=== PATIENT | male | born 1990 | race African-American/Black ===

== ENCOUNTER 2017-05-28 06:53 | Inpatient (IN) | payer MEDICARE ==
[~2017-05-28] VITALS: Ht 167.6 cm; Wt 57.3 kg
[~2017-05-28 06:53] MED LIST: APAP325 MG PO; BACTROBAN NASAL1 GM NASAL; BACTROBAN NASAL1 GM NS; BUPRENORPHI0.3 MG/ML IV; COUMADIN10 MG PO; COUMADIN7.5 MG PO; DAKIN S TP; DAKIN'S 0.125%480 ML TP; EPOGEN4000 U/ML SQ; GENTAMICIN80 MG/2 ML IV; HYDROCODONE-APA1 TA3 PO; HYDROCODONE-APA1 TAB PO; LONITEN2.5 MG PO; METOPROLOL TAR100 MG PO; NIFEREX-150 F1 UDCAP PO; ONDANSETRON4 MG/2 M3 IM; ONDANSETRON4 MG/2 M3 IV; PERCOCET 10/3251 TA1 PO; RENAGEL800 MG PO; RESTORIL15 MG PO; ROCEPHIN 1 GM IN1 GM IV; SALINE FLUSH10 ML IV; SODIUM CL 0.91000 ML; SODIUM CL 0.91000 ML IV; TRIAMTERENE-HCT1 TA1 PO; TUMS500 MG PO; ULTRAM50 MG PO; VANCOMYCIN1 GM/2501 IV; VICODIN 5/500 T1 TAB PO; ZESTRIL40 MG PO; [UNRECOGNIZED DRUG - OTHER] TP
[2017-05-28 08:15] VITALS: BP 121/64; BMI 21.0
[2017-05-28 08:44] LABS: BASOPHILS 0.5 % (0-2); EOSINOPHILS 0.9 % (0-7); HEMATOCRIT 28.2 % (42.0-54.0); HEMOGLOBIN 9.4 g/dL (13.5-17.5); IMMATURE GRANULOCYTES 0.2 % (0-5); LYMPHOCYTES 13.1 % (15-50); MCH 31.8 pg (26.0-34.0); MCHC 33.3 g/dL (31.0-37.0); MCV 95.3 fL (80.0-100.0); MEAN PLATELET VOLUME 9.7 fL (7.4-10.4); MONOCYTES 8.8 % (2-11); NEUTROPHILS 76.5 % (40-80); RBC 2.96 10x6/uL (4.20-6.10); RDW 13.1 % (11.5-14.5); WBC 4.3 10x3/uL (4.8-10.8)
[2017-05-28 08:46] LABS: PLATELET COUNT 230 10x3/uL (130-400)
[2017-05-28 09:14] LABS: ANION GAP 15.3 mmol/L (8-16); CALCIUM 8.3 mg/dL (8.5-10.1); CARBON DIOXIDE 26.5 mmol/L (21.0-32.0); POTASSIUM - SERUM 3.8 mmol/L (3.5-5.1)
[2017-05-28 09:37] LABS: APTT 43.9 SECONDS (22.8-39.4); INR 1.81 (0.85-1.17)
[2017-05-28 15:31] VITALS: BP 115/56
[2017-05-28 15:36] VITALS: BP 115/56; BMI 21.0
--- NOTE | 2017-05-28 16:01 | NUR ---
ARRIVED FROM PACU. COOL AND DRY NO SHIVERING NOTED. VS STABLE BP IS 115/60. WOUND VAC ON. Maryan HERNANDEZ RN WOUND CARE ASSESSING VAC AND MAKING ADJUSTMENTS. HEMOSPLIT R CHEST. CAPS ON HEMOSPLIT TIGHTEN. IV INFUSING KVO IN L FA WITH 20 G. SCDS ON PAUL. FAMILY AT BEDSIDE. WILL CONTINUE TO MONITOR.
--- NOTE | 2017-05-28 17:33 | NUR ---
PT IN BED EATING DINNER. WOUND VAC TO RIGHT UPPER ARM. PT C/O PAIN 10/10 TO NECK AND ARM. WILL CONTINUE TO MONITOR
--- NOTE | 2017-05-28 17:52 | NUR ---
Patient Name: SYL COONEY Admission Status: Elective Accout number: [id number] Admission Date: 05-28-2017 : 1990 Admission Diagnosis: Attending: JONAH Current LOS: 1 Anticipated DC Date: Planned Disposition: Home with Home Health Primary Insurance: MEDICARE A & B PLANNED EXTERNAL PROVIDER: [facility] [place] [facility] / [facility] Discharge Planning Comments: * Is the patient Alert and Oriented? Yes 0 * How many steps to enter\exit or inside your home? 0 0 * PCP NONE 0 * Pharmacy [facility] 0 * Preadmission Environment Home with Family 0 * ADLs Independent 0 * Equipment None 0 * Other Equipment NO MEDICAL EQUIPMENT PROVIDER REFERENCE. PT'S GRANDMOTHER REQUESTS [facility] FOR HOME WOUND VAC 0 * List name and contact numbers for known caregivers / representatives who currently or will assist patient after discharge: GARCIA JONES, 0 * Community resources currently utilized Other 0 * Please name any agencies selected above. OUTPATIENT DIALYSIS, [facility], //, 0630AM, SCAT TRANSPORTATION 0 * Additional services required to return to the preadmission environment? Yes * Can the patient safely return to the preadmission environment? Yes 0 * Has this patient been hospitalized within the prior 30 days at any hospital? No 0 CM RECEIVED ORDER FOR HOME HEALTH ARRANGEMENT TO MANAGE WOUND VAC CHANGES. CM MET WITH PT AND GRANDMOTHER IN ROOM TO DISCUSS DISCHARGE NEEDS AND PLANNING. PT REPORTS LIVING WITH HIS MOTHER IN [facility] [place], HAS NO MEDICAL EQUIPMENT OR OUTSIDE SERVICES ASSISTING IN THE HOME. PT ATTENDS OUTPATIENT DIALYSIS IN [place] ON // 0630AM SCHEDULE, TAKES SCAT TRANSPORTATION TO AND FROM DIALYSIS. CM DISCUSSED AVAILABILITY OF HOME HEALTH, REHAB SERVICES AND MEDICAL EQUIPMENT. PT, AT SUGGESTION OF GRANDMOTHER, REQEUSTED [facility] FOR WOUND VAC FAMILY HAS USED THEM IN THE PAST AND FEELS THEY ARE A VERY GOOD COMPANY. PT HAS NO CHOICE FOR HOME HEALTH, CHOICE SIGNED BY PT FOR [facility] THEY ARE RATED AT 5 STARS. PT WILL NEED SCAT ARRANGED TO TRANSPORT HOME AT DISCHARGE. CM TO ARRANGE WOUND VAC WHEN ORDER RECEIVED ALONG WITH CLINICAL DOCUMENTATION FOR ORDER PROCESSING. CM CALLED [facility] IN [place], , SPOKE TO ONCOLOGY REP NURSE KEARA, DISCUSSED NEED OF WOUND VAC OVER NON WORKING DIALYSIS AVG. KEARA REPORTS THEY SHOULD BE ABLE TO ACCOMODATE VAC CHANGES OVER NON WORKING GRAFT THAT IS NOT BEING USED FOR DIALYSIS. CM TO FOLLOW UP WITH [facility], [place] OFFICE ON 05-31-17, TO ENSURE THIS CAN BE DONE AND WILL ALSO START PROCESS FOR HOME WOUND VAC WITH [facility]. Rubbish Collection Supervisor: Sha Palomino
[2017-05-28 19:00] VITALS: BP 104/70
--- NOTE | 2017-05-29 01:59 | NUR ---
FAMILY MEMBERS VISIT, TALK TO PT AT BED SIDE.
--- NOTE | 2017-05-29 03:30 | NUR ---
REST QUIETLY IN BED, EYE CLOSE, BED LOW, CALL LIGHT WITHIN REACH.
[2017-05-29 04:00] VITALS: BP 108/67
--- NOTE | 2017-05-29 07:00 | NUR ---
INITIAL ROUNDS MADE. PT SITTING UP IN BED WATCHING TV WITH FAMILY IN ROOM. PT DENIES NEEDS OR C/O AT THIS TIME. DISCUSSED PLAN OF CARE AND ISO PRECAUTIONS. RT ARM WOUND VAC INTACT. CONT TO MONITOR.
[2017-05-29 08:00] VITALS: BP 117/69
[2017-05-29 08:06] LABS: BASOPHILS 0.4 % (0-2); EOSINOPHILS 1.6 % (0-7); HEMATOCRIT 25.4 % (42.0-54.0); HEMOGLOBIN 8.6 g/dL (13.5-17.5); IMMATURE GRANULOCYTES 0.2 % (0-5); LYMPHOCYTES 14.4 % (15-50); MCH 31.9 pg (26.0-34.0); MCHC 33.9 g/dL (31.0-37.0); MCV 94.1 fL (80.0-100.0); MEAN PLATELET VOLUME 8.9 fL (7.4-10.4); MONOCYTES 7.7 % (2-11); NEUTROPHILS 75.7 % (40-80); PLATELET COUNT 265 10x3/uL (130-400); WBC 5.1 10x3/uL (4.8-10.8)
[2017-05-29 08:13] LABS: ANION GAP 14.2 mmol/L (8-16); CALCIUM 8.1 mg/dL (8.5-10.1); CARBON DIOXIDE 25.7 mmol/L (21.0-32.0); CREATININE - SERUM 10.2 mg/dL (0.6-1.3); POTASSIUM - SERUM 3.9 mmol/L (3.5-5.1)
--- NOTE | 2017-05-29 11:00 | NUR ---
HD NURSE AT BEDSIDE. VSS. CONT TO MONITOR.
[2017-05-29 12:00] VITALS: BP 150/78
[2017-05-29 13:25] VITALS: Ht 167.6 cm; Wt 57.3 kg
[2017-05-29 16:00] VITALS: BP 102/56
--- NOTE | 2017-05-29 17:30 | NUR ---
WATCHING TV. NO NEEDS OR C/O VOICED AT THIS TIME.
[2017-05-29 19:00] VITALS: BP 101/58
--- NOTE | 2017-05-29 22:47 | NUR ---
INITIAL ROUNDS COMPLETED AT 1914 HRS. PT STATED PAIN LEVEL WAS 5/10. INFORMED NEXT PAIN MED DUE AT 2114 HRS. PT STATED UNDERSTANDING. ASSESSMENT COMPLETED AT 1939 HRS. VSS. IV TO LFA SL. WOUND VAC TO UPPER R ARM INTACT WITH SCANT AMOUNTS OF SERO-SANGINOUS FLUID NOTED. LUNGS CTA. R CHEST HEMOSPLIT CLEAN, DRY AND INTACT. PM HTN MEDS HELD SBP 101. NORCO GIVEN. PT CURRENTLY RESTING WITH EYES CLOSED. RESP EVEN AND REGULAR. SR UP X2, CALL LIGHT WITHIN REACH AND FAMILY AT BEDSIDE.
[2017-05-30] VITALS: BP 109/63
--- NOTE | 2017-05-30 00:24 | NUR ---
PT AWAKE; STATES HAS PAIN 04/03. INFORMED NEXT DOSE AT 0100. PT STATES UNDERSTANDING. WILL CONTINUE TO MONITOR.
--- NOTE | 2017-05-30 01:56 | NUR ---
PT RESTING WITH EYES CLOSED. RESP EVEN AND REGULAR. SR UP X2,CALL LIGHT WITHIN REACH. FAMILY AT BEDSIDE.
[2017-05-30 04:00] VITALS: BP 107/61
--- NOTE | 2017-05-30 04:39 | NUR ---
PT STATES HAS INCISIONAL PAIN. 05/03. INFORMED WILL BRING NORCO AT 0500. WILL CONTINUE TO MONITOR.
--- NOTE | 2017-05-30 04:57 | NUR ---
NORPC PO GIVEN FOR C/O R ARM INCISIONAL PAIN. WILL CONTINUE TO MONTIOR.
--- NOTE | 2017-05-30 06:36 | NUR ---
VSS THROUGHOUT NIGHT. PT STATES NORCO HELPED HIS R ARM PAIN. NEEDS MET; WILL CONTINUE TO MONTIOR.
--- NOTE | 2017-05-30 07:00 | NUR ---
INITIAL ROUNDS MADE. PT SITTING UP IN BED WATCHING TV WITH FAMILY IN ROOM. NO NEEDS OR C/O VOICED AT THIS TIME. REQUESTING PAIN PILL WHEN DUE. WILL CONT TO MONITOR.
[2017-05-30 08:22] VITALS: BP 110/63
[2017-05-30 08:52] LABS: BASOPHILS 0.4 % (0-2); EOSINOPHILS 2.2 % (0-7); HEMATOCRIT 23.5 % (42.0-54.0); IMMATURE GRANULOCYTES 0.4 % (0-5); LYMPHOCYTES 22.4 % (15-50); MCH 31.9 pg (26.0-34.0); MCV 93.6 fL (80.0-100.0); MEAN PLATELET VOLUME 8.4 fL (7.4-10.4); MONOCYTES 10.4 % (2-11); NEUTROPHILS 64.2 % (40-80); PLATELET COUNT 269 10x3/uL (130-400); RBC 2.51 10x6/uL (4.20-6.10); RDW 13.2 % (11.5-14.5); WBC 4.9 10x3/uL (4.8-10.8)
[2017-05-30 09:07] LABS: ANION GAP 11.1 mmol/L (8-16); CALCIUM 7.9 mg/dL (8.5-10.1); CARBON DIOXIDE 31.2 mmol/L (21.0-32.0); CREATININE - SERUM 8.9 mg/dL (0.6-1.3)
[2017-05-30 09:09] LABS: POTASSIUM - SERUM 3.3 mmol/L (3.5-5.1)
[2017-05-30 12:10] VITALS: BP 110/55
--- NOTE | 2017-05-30 13:00 | NUR ---
NORCO GIVEN REQUESTED AND ORDERED PRN.
[2017-05-30 16:15] VITALS: BP 142/75
--- NOTE | 2017-05-30 19:44 | NUR ---
INITIAL ROUNDS COMPLETED. PT WATCHNG TV, NO DISTRESS NOTED. WILL CONTINUE TO MONITOR.
[2017-05-30 22:14] VITALS: BP 121/61
--- NOTE | 2017-05-30 22:44 | NUR ---
ASSESSMENT COMPLETED AT 5 HRS. VSS. IV TO LFA SL. LUGS CTA. UPPER R ARM SWOLLEN WITH WOUND VAC TO UPPER R ARM. WOUND VAC ATTACHED TO 0.25 DAKINS SOLUTION FOR IRRIGATION Q 4 HRS. SCANT SEROSANGINOUS FLUID NOTED. [place] R RADIAL PULSE. NORCO GIVEN AT 2100 FOR C/O R ARM PAIN. PM BP MEDS HELD BP 121/61. PT CURRENTLY WATCHING TV. NO DISTRESS NOTED. SR UP X2, CALL LIGHT WITHIN REACH.
--- NOTE | 2017-05-31 00:15 | NUR ---
PT AWAKE; NO DISTRESS NOTED. WILL CONTINUE TO MONITOR.
[2017-05-31 00:45] VITALS: BP 125/66
--- NOTE | 2017-05-31 02:13 | NUR ---
PT RESTING WITH EYES CLOSED. RESP EVEN AND REGULAR. SR UP X2, CALL LIGHT WITHIN REACH. FAMILY AT BEDSIDE.
[2017-05-31 04:00] VITALS: BP 123/69
--- NOTE | 2017-05-31 04:54 | NUR ---
PT RESTING WITH EYES CLOSED. RESP EVEN AND REGULAR. SR UP X2, CALL LIGHT WITHIN REACH.
--- NOTE | 2017-05-31 06:37 | NUR ---
VSS THROUGHOUT NGIHT. PT STATES NORCO HELPED CONTROL PAIN. LAB UNABLE TO DRAW LAB. STATES NEED TO DRAW IN DIALYSIS. NEEDS MET; WILL CONTINUE TO MONITOR.
--- NOTE | 2017-05-31 07:15 | NUR ---
REPORT RECIEVED ASSUMED CARE. PATIENT IN BED WITH IV INTACT. NO COMPLAINTS AT THIS TIME. CALL LIGHT WITHIN REACH.
[2017-05-31 08:00] VITALS: BP 105/65
--- NOTE | 2017-05-31 08:30 | NUR ---
ASSESSMENT COMPLETE, VS STABLE. PATIENT WOUND VAC INTACT BUT LEAKING SMALL AMOUNT OF DRAINAGE FROM THE BOTTOM OF THE DRESSING. NOTIFIED WOUND CARE NURSE. HEME SPLIT INTACT. IV INTACT. CALL LIGHT WITHIN REACH.
--- NOTE | 2017-05-31 10:00 | NUR ---
PATIENT IN BED WITH IV INTACT. NO COMPLAINTS AT THIS TIME. CALL LIGHT WITHIN REACH.
[2017-05-31 12:00] VITALS: BP 130/81
--- NOTE | 2017-05-31 12:25 | NUR ---
Wound care: Pt has wound vac to surgical wound on right upper arm. The incision measures 20cm x 3.5cm x 0.8cm. There are 2 areas with sutures: one is 1/[address] and the second is 3/[address], so incision appears as 3 separate incisions. The wound bed is red and beefy and bleeds easily. There is no odor or tenderness. There is a moderate amount of bloody drainage. No muscle, tendon or bone is exposed. The wound bed and surrounding skin was cleansed and skin prep applied surrounding wound. 3 pieces of black foam were placed in wound bed and secured. A pigtail was placed on top to connect all 3. Negative pressure was achieved at -125mmhg moderate continuous suction. Pt tolerated well.
--- NOTE | 2017-05-31 13:38 | NUR ---
NEW ORDERS FROM DR YOUSIF.
[2017-05-31 14:24] LABS: INR 1.7 (0.85-1.17); PROTIME 19.9 SECONDS (11.6-15.0)
[2017-05-31 14:25] LABS: APTT 50.2 SECONDS (22.8-39.4)
[2017-05-31 14:26] LABS: BASOPHILS 0.7 % (0-2); EOSINOPHILS 3.4 % (0-7); HEMATOCRIT 22.2 % (42.0-54.0); HEMOGLOBIN 7.5 g/dL (13.5-17.5); IMMATURE GRANULOCYTES 0.3 % (0-5); LYMPHOCYTES 20.6 % (15-50); MCH 31.6 pg (26.0-34.0); MCHC 33.8 g/dL (31.0-37.0); MCV 93.7 fL (80.0-100.0); MEAN PLATELET VOLUME 8.1 fL (7.4-10.4); MONOCYTES 8.8 % (2-11); NEUTROPHILS 66.2 % (40-80); PLATELET COUNT 260 10x3/uL (130-400); RBC 2.37 10x6/uL (4.20-6.10); RDW 13.3 % (11.5-14.5); WBC 5.9 10x3/uL (4.8-10.8)
--- NOTE | 2017-05-31 14:35 | NUR ---
Changed out wound vac dressing x2 more times d/t bleeding and clotting around vac sponges. Called Dr. Lindquist to update. New orders received and initiated (20mcg DDAVP IV NOW over 30 min., PT with INR, PTT NOW) Removed vac dressing and applied pressure dressing. Continuing to monitor.
[2017-05-31 14:45] LABS: ANION GAP 15.3 mmol/L (8-16); CALCIUM 7.7 mg/dL (8.5-10.1); CARBON DIOXIDE 27.5 mmol/L (21.0-32.0); CREATININE - SERUM 12.2 mg/dL (0.6-1.3); POTASSIUM - SERUM 3.8 mmol/L (3.5-5.1); VANCOMYCIN - RANDOM 29.8 ug/mL (10.0-20.0)
--- NOTE | 2017-05-31 14:54 | NUR ---
Patient Name: SYL COONEY Encounter No: [id number] : 1990 Primary Insurance: MEDICARE A & B Anticipated DC Date: Planned Disposition: Home with Home Health External Planned Provider: [facility] DCP follow-up note: CM RECEIVED WOUND NOTE DOCUMENTATION; CM CALLED [facility], , SPOKE TO RERE, NOTIFIED OF REFERRAL AND FAXED REFERRAL TO [facility] AT [phone]. CM CALLED [facility] IN [place], , PROVIDED REFERRAL TO KRISTINE WHO REPORTS THEY SHOULD BE ABLE TO PROVIDE WOUND VAC CHANGES; CM FAXED REFERRAL INFORMATION TO [facility] AT [phone]. CM NOTIFIED PT WHO IS IN AGREEMENT WITH DISCHARGE PLAN, IMPORTANT MESSAGE FROM MEDICARE PROVIDED AND EXPLAINED. PT PROVIDED NUMBER FOR [facility], . PT NORMALLY GETS HOME FROM HIS DIALYSIS AT ABOUT 1030 AM ON MWF. FOR COMPLETION OF HOME HEALTH WITH [facility], NOTIFY [facility] AT [phone], FAX DISCHARGE INFORMATION WITH WOUND VAC DRESSING CHANGE INSTRUCTIONS TO [phone]. CM WAITING PROCESSING OF WOUND VAC ORDER AND WILL REQUIRE SIGNATURE OF DR. YOUSIF ON PRESCRIPTION ONCE COMPLETED BY [facility]. Sha Palomino, CASE MANAGEMENT
--- NOTE | 2017-05-31 15:56 | NUR ---
PATIENT BLOOD STARTED BY DIALYSIS NURSE AT THIS TIME. VS STABLE. NO COMPLAINTS. CALL LIGHT WITHIN REACH.
[2017-05-31 16:00] VITALS: BP 152/82
--- NOTE | 2017-05-31 16:40 | NUR ---
SECOND UNIT OF BLOOD STARTED BY DIALYSIS NURSE. PATIENT VS STABLE. NO PROBLEMS AT THIS TIME. FAMILY AT BEDSIDE. CALL LIGHT WITHIN REACH.
--- NOTE | 2017-05-31 18:30 | NUR ---
PATIENT DRESSING REINFORCED AGAIN. LEAKING SMALL AMOUNT OF PINK DRAINAGE. PATIENT HAS NO COMPLAINTS AT THIS TIME. IV INTACT. CALL LIGHT WITHIN REACH. FAMILY AT BEDSIDE.
[2017-05-31 19:45] VITALS: BP 124/61
--- NOTE | 2017-05-31 20:00 | NUR ---
PATIENT IN BED WITH NO COMPLAINTS. IV INTACT. DRESSING INTACT. FAMILY AT BEDSIDE. CALL LIGHT WITHIN REACH.
--- NOTE | 2017-05-31 21:36 | OP ---
PATIENT NAME: SYL COONEY MEDICAL RECORD: [id number] :[birth year] LOCATION:D.M2 D.2112 ADMISSION DATE:05/28/17 SURGEON: GENEVIEVE YOUSIF MD DATE OF OPERATION: 05/28/2017 REFERRING PHYSICIAN: Dr. Dutta, Dr. Park and Dr. Landry. PREOPERATIVE DIAGNOSES: Abscess, right shoulder with infected underlying vascular graft and recent episodes of staphylococcal bacteremia and end-stage renal disease along with also superior vena cava syndrome. POSTOPERATIVE DIAGNOSES: Abscess, right shoulder with infected underlying vascular graft and recent episodes of staphylococcal bacteremia and end-stage renal disease along with also superior vena cava syndrome OPERATION PERFORMED: Removal of a HeRO outflow device and attached infected PTFE graft, performance of a superior vena cavogram and balloon angioplasty of superior vena cava stenosis and insertion of a HemoSplit tunneled dialysis catheter via right internal jugular venous approach. SURGEON: Genevieve Yousif MD ANESTHESIA: General endotracheal per OUTBOUND SALES EXECUTIVE. PREOPERATIVE NOTE: Mr. 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 He has most recently been dialyzing for some time now with a right upper extremity HeRO graft with origin from the proximal brachial artery. That graft had been revised one time and the graft routed posteriorly passing over a close to the point of the shoulder. Apparently, the point of the shoulder has been the site of the erosion of the connector into the overlying skin. He developed an abscess there, which has spontaneously drained. There is a pinhole there in the base of these ulcerations, which we can see the PTFE graft. He has had several episodes, I am told of staphylococcal bacteremia and has been on off and on antibiotics for some time. He is brought to the operating room at this time to plan to do an I&D drain in the abscess and most likely remove the HeRO graft and implant a HemoSplit. Initially, general anesthesia administered with LMA and subsequently intubated and continued as a general endotracheal anesthetic. The patient was prepped and draped in the sterile manner. I excised the skin erosions/abscess over the graft and exposed it and cultured the purulent thin non-foul smelling fluid around it for aerobic and anaerobic organisms and requested a stat Gram stain. The results of that are pending as I dictate. Obviously infected, I placed a clamp at that point across the HeRO outflow device. I then made an incision at the base of the neck and exposed the HeRO outflow device, clamped and divided it. I placed a 2-0 Vicryl pursestring suture at the base of the neck around the tract and noted that the catheter was encased in a calcified scar tract. I attempted to pass a dilator peel-away introducer sheath over a guidewire through that tract, but was unsuccessful due to stenosis so I placed an 8-Anguillan introducer pulling the pursestring suture tight about it and injected contrast performing exterior venacavogram and noted that the calcified tract extended all the way into the right atrium. This superior vena cava stenosis was subsequently dilated with an 8-mm diameter Conquest high pressure balloon and OPERATIVE REPORT [id number] SYL COONEY then I was able to pass dilators and a peel-away introducer sheath, then I inserted a 19-cm HemoSplit catheter brought in from a separate incision and a fresh subcutaneous tunnel. Its tip was positioned actually in the inferior vena cava. Both lumens were accessed and aspirated. Both return the blood and were then flushed with saline and then heparin lock, clamped and capped. The catheter was sutured to the skin near the entry site with 2-0 silk and appropriate sterile dressings applied. The cervical incision was irrigated with Ancef/gentamicin solution and the incision was closed with rick. Sterile dressing was applied. 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 I did not find any purulence. I closed the graft with 2 Hemoclips just above the antecubital level. I then extended the incision connecting all 3 and through that excised that long segment of PTFE into the connector and was able also to pull out the remaining portion of the HeRO outflow device. The wound was irrigated with Ancef/gentamicin solution that was infiltrated and irrigated with 0.25% Marcaine with epinephrine. The specimen was discarded with the exception of 2 short segments, one from the outflow device and one from the PTFE segment. These were sent separately for culture. The wound was partially closed at a couple of points to speed overall healing and then dressed with a wound VAC dressing with black foam. The patient was subsequently awakened and taken to the recovery room. Blood loss during the operation was insignificant and replaced and all sponges, instruments, and needles were accounted for. No drain was used other than the wound VAC dressing. He will need to stay in the hospital for pain control, wound management, wound VAC dressings, appropriate IV antibiotics and infectious disease consult. I believe he will need to stay on appropriate antibiotics for minimal of 6 weeks before we consider possibly implanting a new HeRO device and removing the new HemoSplit inserted today. Blood loss was about 50 cc and unreplaced. All sponges, instruments and needles were accounted for. TRANSINT:[id number] Voice Confirmation ID: [id number] DOCUMENT ID: [id number] GENEVIEVE YOUSIF MD at 2136 CC: KLAUDIA DUTTA MD and CARLEEN PARK MD [id number] DICTATION DATE: 05/28/17 1454 SUBSTANCE ADDICTION COORDINATOR: 05/28/17 191 ADM IN [facility] [address] [id number]
--- NOTE | 2017-05-31 22:10 | NUR ---
PATIENT RECIEVED PAIN MEDS. NO OTHER COMPLAINTS AT THIS TIME. IV INTACT. DRESSING INTACT. CALL LIGHT WITHIN REACH.
--- NOTE | 2017-05-31 23:00 | NUR ---
REPORT GIVEN TO DAGOBERTO LIN. PATIENT IN BED EYES CLOSED RESTING AT THIS TIME. IV INTACT. CALL LIGHT WITHIN REACH.
--- NOTE | 2017-06-01 01:11 | NUR ---
RESTING IN BED WITH EYES CLOSED. NO S/S OF DISTRESS OBSERVED. DRESSING TO RIGHT ARM HAS BLOOD ON IT. NURSE REPORTED PRESSURE DRESSING THAT SHE HAD REINFORCED. NO BLEEDING OBSERVED THIS SHIFT. SALINE LOCK TO LEFT HAND. PATENT AND NO REDNESS OR SWELLING TO SITE. FAMILY AT BED SIDE.
[2017-06-01 01:25] VITALS: BP 118/65
--- NOTE | 2017-06-01 04:01 | NUR ---
RESTING IN BED WITH EYES CLOSED. FAMILY AT BEDSIDE ASLEEP. NO S/S OF DISTRESS OBSERVED. HOB SLIGHTLY ELEVATED.
[2017-06-01 05:02] VITALS: BP 123/72
--- NOTE | 2017-06-01 05:15 | NUR ---
AWAKE AND ALERT. C/O LEFT ARM PAIN AT SURGICAL SITE AT 9. REQUESTING PAIN MEDICATION. MEDS GIVEN PER ORDERS. WILL REASSESS.
[2017-06-01 08:57] VITALS: BP 104/63
--- NOTE | 2017-06-01 10:02 | NUR ---
Wound care: Pressure dressing removed from surgical wound on right upper arm. Bleeding has stopped. Wound vac dressing applied. settings at -125mmhg moderate continuous. 1 piece of black foam used for entire area. Pt tolerated well.
--- NOTE | 2017-06-01 10:41 | NUR ---
0720- AM ROUNDING- RECEIVED REPORT FROM CLINICAL LABORATORY MANAGER NURSE DAGOBERTO. PT IS CURRENTLY LAYING IN BED ON RIGHT SIDE WITH EYES CLOSED RESTING. GUEST MEMBER AT BEDSIDE. ON ROOM AIR. NO MONITOR. IV SEEN TO LEFT FOREARM THAT IS CURRENTLY SALINE LOCKED. RIGHT CHEST HEMOSPLIT SEEN FOR DIALYSIS WITH CLEAN, DRY, AND INTACT DRESSING. DRESSING (WITH DRIED BLOOD) SEEN TO PTS RIGHT UPPER ARM THAT IS INTACT. NO NEED AT CURRENT TIME. WILL CONTINUE TO MONITOR AND CONTINUE WITH PLAN OF CARE.
--- NOTE | 2017-06-01 11:27 | NUR ---
Patient Name: SYL COONEY Encounter No: [id number] : 1990 Primary Insurance: MEDICARE A & B Anticipated DC Date: Planned Disposition: Home with Home Health External Planned Provider: [facility] DCP follow-up note: CM CALLED DR. YOUSIF'S OFFICE, SPOKE TO NURSE CROWE AND DISCUSSED NEED FOR SIGNED PRESCRIPTION FOR WOUND VAC AND FOR CM TO KNOW IF PLANS TO DISCHARGE PT HOME CM HAS ARRANGED MEDICAID TRANSPORTATION, , [facility] AT 1400 HOURS ON 06-01-17. NURSE CROWE REQUESTED CM PRINT VAC PRESCRIPTION AND FAX TO OFFICE; CM PRINTED VAC PRESCRIPTION AND FAXED TO [phone] REQUESTED. FOR COMPLETION OF HOME HEALTH WITH [facility], NOTIFY [facility] AT [phone], FAX DISCHARGE INFORMATION WITH WOUND VAC DRESSING CHANGE INSTRUCTIONS TO [phone]. CM WAITING SIGNATURE OF DR. YOUSIF ON PRESCRIPTION; ONCE RECEIVED, CM TO FAX TO [facility] AT [phone] TO COMPLETE PROCESSING OF ORDER. Sha Palomino, CASE MANAGEMENT
[2017-06-01 12:29] VITALS: BP 150/76
[2017-06-01 15:34] LABS: BASOPHILS 0.3 % (0-2); EOSINOPHILS 3.4 % (0-7); HEMATOCRIT 26.3 % (42.0-54.0); HEMOGLOBIN 8.9 g/dL (13.5-17.5); IMMATURE GRANULOCYTES 0.5 % (0-5); LYMPHOCYTES 21.4 % (15-50); MCH 30.3 pg (26.0-34.0); MCHC 33.8 g/dL (31.0-37.0); MEAN PLATELET VOLUME 8.3 fL (7.4-10.4); NEUTROPHILS 65.4 % (40-80); PLATELET COUNT 219 10x3/uL (130-400); RDW 16.8 % (11.5-14.5); WBC 6.2 10x3/uL (4.8-10.8)
[2017-06-01 15:35] LABS: MCV 89.5 fL (80.0-100.0); RBC 2.94 10x6/uL (4.20-6.10)
[2017-06-01 15:51] LABS: ANION GAP 16.6 mmol/L (8-16); CALCIUM 8.2 mg/dL (8.5-10.1); CARBON DIOXIDE 29.2 mmol/L (21.0-32.0); CREATININE - SERUM 10.9 mg/dL (0.6-1.3); POTASSIUM - SERUM 3.8 mmol/L (3.5-5.1); VANCOMYCIN - RANDOM 22.1 ug/mL (10.0-20.0)
[2017-06-01 15:59] VITALS: BP 128/76
--- NOTE | 2017-06-01 17:15 | NUR ---
PT IS CURRETNLY SITTING UP IN EATING DINNER. PT DENIES ANY NEED AT CURRENT TIME. CALL LIGHT IS IN REACH. WILL CONTINUE TO MONITOR.
[2017-06-01 19:00] VITALS: BP 153/73
--- NOTE | 2017-06-01 20:15 | NUR ---
C/O OF PAIN IN ARM, A LEVEL OF 8, PAIN MED GIVEN.
--- NOTE | 2017-06-01 22:52 | NUR ---
RESTING IN BED WITH NO DISTRESS. PRIMARY NURSE ADMINISTERING BEDTIME MEDS. CPOC.
--- NOTE | 2017-06-02 03:28 | NUR ---
REST IN BED, EYE CLOSE, CALL LIGHT WITHIN REACH.
[2017-06-02 05:44] LABS: BASOPHILS 0.4 % (0-2); HEMATOCRIT 25.3 % (42.0-54.0); HEMOGLOBIN 8.7 g/dL (13.5-17.5); IMMATURE GRANULOCYTES 0.7 % (0-5); LYMPHOCYTES 19.2 % (15-50); MCH 30.6 pg (26.0-34.0); MCHC 34.4 g/dL (31.0-37.0); MCV 89.1 fL (80.0-100.0); MEAN PLATELET VOLUME 8.2 fL (7.4-10.4); NEUTROPHILS 67.7 % (40-80); PLATELET COUNT 190 10x3/uL (130-400); RBC 2.84 10x6/uL (4.20-6.10); RDW 16.4 % (11.5-14.5); WBC 5.5 10x3/uL (4.8-10.8)
[2017-06-02 06:04] LABS: ANION GAP 15.8 mmol/L (8-16); CALCIUM 8.3 mg/dL (8.5-10.1); CARBON DIOXIDE 27.5 mmol/L (21.0-32.0); CREATININE - SERUM 12.4 mg/dL (0.6-1.3); POTASSIUM - SERUM 4.3 mmol/L (3.5-5.1); VANCOMYCIN - RANDOM 22.7 ug/mL (10.0-20.0)
--- NOTE | 2017-06-02 07:53 | NUR ---
AM ROUNDING- RECEIVED REPORT FROM PLANT HEALTH MANAGER NURSE LILIANA. PT IS CURRENTLY SITTING UP IN BED WITH EYES OPEN RESTING C/O 9/10 PAIN COMING FROM RIGHT UPPER ARM. ON ROOM AIR. NO MONITOR. IV SEEN TO LEFT FOREARM THAT IS CURRENTLY SALINE LOCKED. RIGHT CHEST HEMOSPLIT SEEN FOR DIALYSIS. RESERVE LEFT ARM. CLEAN, DRY, AND INTACT DRESSING SEEN TO RIGHT UPPER ARM THAT IS HOOKED UP TO WOUND VAC. WILL SEE WHAT PT HAS FOR PAIN AND TX PER ORDER. WILL CONTINUE TO MONITOR.
[2017-06-02 08:49] VITALS: BP 144/76
--- NOTE | 2017-06-02 11:47 | NUR ---
0830- SPOKE WITH PT REGARDING TAKING LUNA WITH BREAKFAST AND LUNCH ORDERED. PT STATES HE DID NOT LIKE THEM AND THAT THEY TASTED NASTY AND DID NOT WANT TO TAKE THEM.
[2017-06-02 16:09] VITALS: BP 126/60
--- NOTE | 2017-06-02 17:36 | NUR ---
Dialysis Coordinator: ALEXANDRA [facility] Dialysis Mon/Wed/Wed am shift. ANA CHAU.
--- NOTE | 2017-06-02 18:08 | NUR ---
PT IS CURRENTLY SITTING UP IN BED WITH EYES OPEN RESTING. PT IS ASKING WHEN HE CAN HAVE HIS PAIN MEDICATION AGAIN. I INFORMED PT I WILL CHECK AND SEE WHEN HE CAN HAVE PAIN MEDICAION. WILL CONTINUE TO MONITOR.
[2017-06-02 20:00] VITALS: BP 116/69
--- NOTE | 2017-06-02 20:12 | NUR ---
RESTING IN BED WITH EYES CLOSED AT THIS TIME. NO S/S OF DISTRESS OBSERVED.
--- NOTE | 2017-06-02 22:28 | NUR ---
RESTING IN BED WITH EYES CLOSED AT THIS TIME. SL TO LFA PATENT. DRESSING INTACT WITH NO REDNESS OR SWELLING OBSERVED. WOUND VAC TO RIGHT UPPER ARM. FUNCTIONING PROPERLY. DRESSING TO SITE INTACT. HEMOSPLIT TO RIGHT CHEST WITH DRESSING CLEAN, DRY A ND INTACT. C/O RIGHT ARM PAIN EARLIER AT 9 AND REQUESTED AMBIEN FOR SLEEP. MEDS GIVEN PER ORDERS.
--- NOTE | 2017-06-03 00:31 | NUR ---
FAMILY AT BEDSIDE AT THIS TIME. RESTING IN BED WITH EYES CLOSED AT THIS TIME. NO S/S OF DISTRESS OBSERVED. CALL LIGHT AND OVERBED TABLE IN REACH.
[2017-06-03 01:25] VITALS: BP 137/74
--- NOTE | 2017-06-03 02:19 | NUR ---
RESTING IN BED WITH EYES CLOSED. FAMILY ASLEEP AT BEDSIDE.
--- NOTE | 2017-06-03 04:07 | NUR ---
RESTING IN BED WITH EYES CLOSED AND FAMILY AT BEDSIDE ASLEEP. NO S/S OF DISTRESS OBSERVED. CALL LIGHT AND OVERBED TABLE IN REACH.
[2017-06-03 04:12] VITALS: BP 135/79
[2017-06-03 05:52] LABS: BASOPHILS 0.6 % (0-2); EOSINOPHILS 3.5 % (0-7); IMMATURE GRANULOCYTES 1.1 % (0-5); MCH 30.4 pg (26.0-34.0); MCHC 33.7 g/dL (31.0-37.0); MCV 90.4 fL (80.0-100.0); MEAN PLATELET VOLUME 8.3 fL (7.4-10.4); MONOCYTES 10.1 % (2-11); NEUTROPHILS 63.7 % (40-80); RDW 15.5 % (11.5-14.5); WBC 6.6 10x3/uL (4.8-10.8)
[2017-06-03 06:10] LABS: HEMATOCRIT 31.2 % (42.0-54.0); HEMOGLOBIN 10.5 g/dL (13.5-17.5); PLATELET COUNT 237 10x3/uL (130-400); RBC 3.45 10x6/uL (4.20-6.10)
[2017-06-03 06:17] LABS: ANION GAP 14.1 mmol/L (8-16); CALCIUM 8.8 mg/dL (8.5-10.1); CARBON DIOXIDE 31.2 mmol/L (21.0-32.0); CREATININE - SERUM 11.2 mg/dL (0.6-1.3); POTASSIUM - SERUM 4.3 mmol/L (3.5-5.1); VANCOMYCIN - RANDOM 17.7 ug/mL (10.0-20.0)
--- NOTE | 2017-06-03 07:39 | NUR ---
AM ROUNDING DONE WITH PATIENT HAVING WOUND VAC TO RIGHT UPPER ARM, NO LEAKS SEEN. MALE MEMBER ASLEEP IN CHAIR. LEFT HEMISPLIT SEEN WITH DRY INTACT DRESSING. LEFT FA SEEN WITH SALINE LOCK. RESERVE RIGHT ARM, DIALYSIS M, W, F. PATIENT IS UP AD LUCIUS. WILL CPOC.
[2017-06-03 09:19] VITALS: BP 184/88
--- NOTE | 2017-06-03 12:20 | NUR ---
Patient Name: SYL COONEY Encounter No: [id number] : 1990 Primary Insurance: MEDICARE A & B Anticipated DC Date: 06-03-2017 Planned Disposition: Home with Home Health External Planned Provider: [facility] DCP follow-up note: CM PAGED AND SPOKE TO RENAL NURSE ESTEPHANIA AND SPOKE TO DR. REDDY AT NURSES STATION; [facility] MEDICA[facility] TRANSPORTATION, , CALLED LAST EVENING BY CM, DG [facility] GROUP MANAGER SHEDULE FOR 06-03-17 AT 1400 HOURS FOR TRANSPORT HOME. CM RECEIVED DISCHARGE ORDERS, NOTIFIED PT WHO IS IN AGREEMENT WITH DISCHARGE HOME TODAY VIA [facility]. IMPORTANT MESSAGE FROM MEDICARE PROVIDED AND EXPLAINED. CM NOTIFIED MELI OF [facility] OF PT'S DISCHARGE HOME AND WILL RESUME HOME DIALYSIS UNIT TOMORROW. CM CALLED AND NOTIED [facility] AT [phone], HOME HEALTH TO ADMIT TOMORROW; CM FAXED DISCHARGE INFORMATION TO [phone]. Sha Palomino, CASE MANAGEMENT
--- NOTE | 2017-06-03 12:35 | NUR ---
USING STERILE TECHNIQUE, RIGHT HEMISPLIT DRESSING CHANGED USING THE PICC LINE KIT. DATED. TOLERATED WELL.
--- NOTE | 2017-06-03 13:00 | NUR ---
PATIENT TO LEAVE FLOOR WITH GRANDMOTHER. IV IS STILL IN.
--- NOTE | 2017-06-03 13:03 | NUR ---
PATIENT BACK TO ROOM WITH GRANDMOTHER. WRITTEN SCRIPT FOR NORCO 10/325 MG #30 WITH NO REFILLS WILL BE GIVEN TO PATIENT UPON DISCHARGE.
--- NOTE | 2017-06-03 13:10 | NUR ---
SALINE LOCK REMOVED WITH CATH TIP INTACT. VERBAL AND WRITTEN DISCHARGE PAPERWORK GIVEN TO PATIENT. DISCHARGED HOME PER WHEELCHAIR TO [facility].
[2017-06-04 17:11] LABS: AEROBE ID Final report (()); RESULT 1 Pantoea species (())
== END 2017-06-03 13:31 | disposition home health service (06) | DRG 252 ==
LOC: D.OPS 06:53 → D.M2 06:53 → D.OPS 09:30 → D.M2 14:44 → D.OPS 14:45 → D.M2 14:45
PROVIDERS: Emergency Medicine; Surgery; ADMIT Internal Medicine Nephrology
PROC: 06H033Z Insertion of Infusion Device into Inferior Vena Cava, Percutaneous Approach (ICD-10-PCS; 2017-05-28)
PROC: B5191ZA Fluoroscopy of Inferior Vena Cava using Low Osmolar Contrast, Guidance (ICD-10-PCS; 2017-05-28)
PROC: 0H9BXZZ Drainage of Right Upper Arm Skin, External Approach (ICD-10-PCS; 2017-05-28)
PROC: B5181ZZ Fluoroscopy of Superior Vena Cava using Low Osmolar Contrast (ICD-10-PCS; principal; 2017-05-28 10:30)
PROC: 027V3ZZ Dilation of Superior Vena Cava, Percutaneous Approach (ICD-10-PCS; 2017-05-28 10:30)
PROC: 03PY0KZ Removal of Nonautologous Tissue Substitute from Upper Artery, Open Approach (ICD-10-PCS; 2017-05-28 10:30)
PROC: 05HM33Z Insertion of Infusion Device into Right Internal Jugular Vein, Percutaneous Approach (ICD-10-PCS; 2017-05-28 10:30)
PROC: 5A1D60Z (ICD-10-PCS; 2017-05-29)
DX: T82.7XXA Infection and inflammatory reaction due to other cardiac and vascular devices, implants and grafts, initial encounter (principal); N18.6 End stage renal disease; I12.0 Hypertensive chronic kidney disease with stage 5 chronic kidney disease or end stage renal disease; I87.1 Compression of vein; L02.413 Cutaneous abscess of right upper limb; Y83.8 Other surgical procedures as the cause of abnormal reaction of the patient, or of later complication, without mention of misadventure at the time of the procedure; D63.1 Anemia in chronic kidney disease

== ENCOUNTER 2017-07-01 14:51 | Emergency (ER) | payer MEDICARE ==
[2017-05-29 13:25] VITALS: BMI 22.7
== END 2017-07-01 15:23 | disposition home or self-care (01) ==
LOC: D.ER 14:51
DX: K02.9 Dental caries, unspecified (principal); K08.89 Other specified disorders of teeth and supporting structures; I10 Essential (primary) hypertension

== ENCOUNTER 2017-07-27 07:23 | Inpatient (IN) | payer MEDICARE ==
[2017-07-27 08:23] LABS: BASOPHILS 0.5 % (0-2); EOSINOPHILS 5.3 % (0-7); HEMATOCRIT 33.3 % (42.0-54.0); HEMOGLOBIN 11.4 g/dL (13.5-17.5); IMMATURE GRANULOCYTES 0.5 % (0-5); MCH 32.2 pg (26.0-34.0); MCHC 34.2 g/dL (31.0-37.0); MCV 94.1 fL (80.0-100.0); MEAN PLATELET VOLUME 9.8 fL (7.4-10.4); NEUTROPHILS 53.7 % (40-80); RBC 3.54 10x6/uL (4.20-6.10); RDW 14.9 % (11.5-14.5); WBC 4.4 10x3/uL (4.8-10.8)
[2017-07-27 08:30] LABS: APTT 26.6 SECONDS (22.8-39.4)
[2017-07-27 08:31] LABS: ANION GAP 20.3 mmol/L (8-16); CALCIUM 8.6 mg/dL (8.5-10.1); CARBON DIOXIDE 20.9 mmol/L (21.0-32.0); CREATININE - SERUM 10.9 mg/dL (0.6-1.3); INR 1.05 (0.85-1.17); POTASSIUM - SERUM 4.2 mmol/L (3.5-5.1); PROTIME 13.5 SECONDS (11.6-15.0)
[2017-07-27 08:44] LABS: PLATELET COUNT 152 10x3/uL (130-400)
[2017-07-27 09:51] VITALS: BMI 21.0
--- NOTE | 2017-07-27 15:05 | NUR ---
2ND PREP FOR INSERTION OF CVL PER INTO LEFT GROIN. 3RD PREP: PAUL UPPER CHEST TO WAIST, LEFT HAND AND ARM
[2017-07-27 17:40] VITALS: BP 148/88
--- NOTE | 2017-07-27 17:41 | NUR ---
PT TO ROOM ALERT AND ORIENTED. POST OP VS ARE WNL WILL ADMIT
[2017-07-27 17:42] VITALS: BP 148/88; BMI 21.0
--- NOTE | 2017-07-27 18:44 | NUR ---
PT VS ARE STILL WNL. PT SITTING UP IN BED SLEEPING NO S/S DISTRESS NOTED RR EVEN AND UNLABORED
[2017-07-27 19:00] VITALS: BP 148/98
--- NOTE | 2017-07-27 19:40 | NUR ---
PT RESTING IN BED. STATES PAIN IS 8/10 IN LEFT ARM. PT HAS BULGING EYES. STATES THAT HIS EYES ARE JUST LIKE THAT. PT ASKS FOR APPLE JUICE, DENIES ANY NEEDS OTHER THAN THAT. PT BED LOW AND CALL LIGHT IN REACH. WILL CPOC
--- NOTE | 2017-07-27 19:45 | NUR ---
GAVE PT APPLE JUICE. PT DENIES ANY OTHER NEEDS. WILL CPOC
--- NOTE | 2017-07-27 19:50 | NUR ---
PT ATE 10% 240ML OF DINNER.
--- NOTE | 2017-07-27 23:25 | NUR ---
PT ASLEEP. RESPIRATIONS EVEN AND UNLABORED. POST OP VITALS DONE AND IN CHART. LAST SET AT 2300 146/95 PULSE 89 RESPIRATIONS 16 TEMP. 98.6. PT HAS NO S/S OF DISTRESS. BED LOW AND CALL LIGHT IN REACH. WILL CPOC
--- NOTE | 2017-07-28 | NUR ---
PT A RESERVE LEFT ARM SIGN ON PT DOOR AND ABOVE BED. PT ASLEEP. RESPIRATIONS EVEN AND UNLABORED. 16. NO S/S OF DISTRESS. WILL CPOC
--- NOTE | 2017-07-28 01:25 | NUR ---
PT C/O PAIN 9/10 IN LEFT ARM THAT IS THROBBING. PRN PAIN MED GIVEN. PT DENIES ANY OTHER NEEDS. NO S/S OF DISTRESS. WILL CPOC
[2017-07-28 04:00] VITALS: BP 165/98
--- NOTE | 2017-07-28 05:01 | NUR ---
PT RESTING IN BED. C/O PAIN IN LEFT ARM. TRAMADOL GIVEN. PT DECLINES AN ICE PACK. PT EXPRESSING PAIN AND SOME MILD ANXIETY. PT HAS NO S/S OF DISTRESS. WILL CPOC
--- NOTE | 2017-07-28 05:42 | NUR ---
PT ASLEEP. RESPIRATIONS EVEN AND UNLABORED BP 140/89 PULSE 96. NO S/S OF DISTRESS. BED LOW AND CALL LIGHT IN REACH. WILL CPOC
--- NOTE | 2017-07-28 07:19 | NUR ---
pt sitting up in bed sleeping no s/s distress noted rr even and unlabored. will cont to monitor
[2017-07-28 08:16] VITALS: BP 141/88
--- NOTE | 2017-07-28 09:00 | NUR ---
CHANGED PT LEFT GROIN CVL DSNG PER FLOOR POLICY STERILE TECHNIQUE INITIATED. BIOPATCH AND SWAB CAPS INTACT
--- NOTE | 2017-07-28 09:53 | NUR ---
THERE WAS AN ORDER TO COLLECT CULTURE OF HEMOSPLIT CATHETER TIP. PT HAD HEMOSPLIT REMOVED YESTERDAY, NO HEMOSPLIT TO CULTURE.
[2017-07-28 10:40] VITALS: BMI 20.9
[2017-07-28 11:45] VITALS: BP 146/56
[2017-07-28 12:17] LABS: HEMATOCRIT 27.4 % (42.0-54.0); HEMOGLOBIN 9.6 g/dL (13.5-17.5); MCH 32.4 pg (26.0-34.0); MCV 92.6 fL (80.0-100.0); MEAN PLATELET VOLUME 8.9 fL (7.4-10.4); PLATELET COUNT 124 10x3/uL (130-400); RBC 2.96 10x6/uL (4.20-6.10)
[2017-07-28 12:25] LABS: ANION GAP 17.3 mmol/L (8-16); CALCIUM 8.2 mg/dL (8.5-10.1); CARBON DIOXIDE 21.7 mmol/L (21.0-32.0); CREATININE - SERUM 11.6 mg/dL (0.6-1.3)
[2017-07-28 12:36] LABS: WBC 2.7 10x3/uL (4.8-10.8)
[2017-07-28 13:50] LABS: EOSINOPHILS 3 % (0-7); LYMPHOCYTES 15 % (15-50); MONOCYTES 1 % (2-11); NEUTROPHILS 81 % (40-80)
--- NOTE | 2017-07-28 13:50 | NUR ---
[facility] IS JUST NOW GENERATING ORDERS FROM DAYS AGO... I AWKNOLGED AN ORDER FROM YESTERDAY FOR 2 UNITS PRBC. TALKED WITH ESTEPHANIA SOLIS FROM [facility] ABOUT THIS, SHE SAID TO ORDER STAT CBC AND IF HGB IS ABOVE 8 DO NOT TRANSFUSE AND CANCEL PRBC ORDER. WILL DO
[2017-07-28 13:51] LABS: PLATELET ESTIMATE NORMAL
--- NOTE | 2017-07-28 14:29 | NUR ---
TALKED WITH ESTEPHANIA VALLEJO APN ABOUT PT HAVING DUPLICATE ORDERS FOR TYLENOL AND ULTRAM. SHE IS GOING TO LOOK AT MED REC AND DC THE DUPLICATES.
--- NOTE | 2017-07-28 14:34 | NUR ---
Mr. Austin had hemodialysis today via his left lower arm av fistula from 102 till 1521. Average blood flow was 300-350 mls/minute. Transfused two units of prbc's. Removed the 700 mls from the two units of prbc's and a net of 2000 mls. Post vital signs were: B/P: 185/70, HR:71, Temp: 98.5, Resps: 16. Pt. had some significant cramping at the end of treatment.
--- NOTE | 2017-07-28 15:06 | NUR ---
PT IS STILL IN DIALYSIS
--- NOTE | 2017-07-28 15:50 | NUR ---
PHARMACY JUST BROUGHT UP PT MINOCIN. TOO CLOSE TO NEXT DOSE TO GIVE NOW. WILL PASS OFF TO RICE DRYER MECHANIC TO GIVE AT 2100
--- NOTE | 2017-07-28 15:50 | NUR ---
PT IS STILL IN DIALYSIS.
--- NOTE | 2017-07-28 16:01 | NUR ---
Mr. Cross had hemodialysis had hemodialysis today via his new left upper arm hero graft. Used acuseal protocol, 17 gauge needles, sterile gloves and 250 blood flow. Net fluid removed was 3500 mls. Post vital signs were: B/P: 153/90, HR: 98, Temp: 98.8, Resps:16.
--- NOTE | 2017-07-28 16:35 | NUR ---
STILL WAITING ON LAB TO RESULT OF PT INR BEFORE I GIVE HIM HIS COUMADIN
--- NOTE | 2017-07-28 16:42 | NUR ---
STILL WAITING ON PT INR........... PT RECEIVED [facility]
[2017-07-28 16:57] LABS: INR 1.06 (0.85-1.17); PROTIME 13.6 SECONDS (11.6-15.0)
--- NOTE | 2017-07-28 19:30 | NUR ---
PT RESTING IN BED. PT C/O 06/03 PAIN IN LEFT ARM THAT IS THROBBING. WILL BRING PAIN MEDS SOON CHECK TIMES THAT MEDS ARE AVALIBLE. PT DENIES ANY OTHER NEEDS. NO S/S OF DISTRESS. WILL CPOC
[2017-07-28 20:00] VITALS: BP 112/68
--- NOTE | 2017-07-28 20:30 | NUR ---
GAVE PT PAIN MEDS FOR 8/10 PAIN. PT DENIES ANY OTHER NEEDS. WILL CPOC
--- NOTE | 2017-07-28 23:44 | NUR ---
PT C/O 05/03 PAIN IN LEFT ARM. SCHEDULED ULTRAM GIVEN PRN NORCO GIVEN. PT DENIES ANY OTHER NEEDS. NO S/S OF DISTRESS. WILL CPOC
[2017-07-29 04:00] VITALS: BP 140/87
--- NOTE | 2017-07-29 04:02 | NUR ---
PT C/O 06/03 PAIN IN LEFT ARM. PAIN MED GIVEN. PT ASK FOR A NIGHT SNACK. WILL GIVE GRAMCRACKERS AND PNT BUTTER. PT DENIES ANY OTHER NEEDS. NO S/S OF DISTRESS. WILL CPOC
[2017-07-29 05:51] LABS: BASOPHILS 0.2 % (0-2); EOSINOPHILS 6.4 % (0-7); HEMATOCRIT 29.8 % (42.0-54.0); HEMOGLOBIN 10.4 g/dL (13.5-17.5); IMMATURE GRANULOCYTES 0.2 % (0-5); LYMPHOCYTES 15.8 % (15-50); MCH 32.3 pg (26.0-34.0); MCHC 34.9 g/dL (31.0-37.0); MCV 92.5 fL (80.0-100.0); MONOCYTES 17.2 % (2-11); NEUTROPHILS 60.2 % (40-80); PLATELET COUNT 136 10x3/uL (130-400); RBC 3.22 10x6/uL (4.20-6.10); RDW 14.8 % (11.5-14.5)
[2017-07-29 06:08] LABS: WBC 4.4 10x3/uL (4.8-10.8)
[2017-07-29 06:11] LABS: ANION GAP 15.6 mmol/L (8-16); CALCIUM 8.4 mg/dL (8.5-10.1); CARBON DIOXIDE 27.1 mmol/L (21.0-32.0); CREATININE - SERUM 10.1 mg/dL (0.6-1.3); POTASSIUM - SERUM 3.7 mmol/L (3.5-5.1)
--- NOTE | 2017-07-29 06:36 | NUR ---
PT ASLEEP. RESPIRATIONS EVEN AND UNLABORED. NO S/S OF DISTRESS. CALL LIGHT IN REACH. WILL CPOC
--- NOTE | 2017-07-29 07:41 | NUR ---
PT SITTING UP IN BED REQUESTING PAIN MEDICATION. CAN HAVE MORE MEDICATION AT 0800. WILL GIVE THEN.
[2017-07-29 08:00] VITALS: BP 141/74
[2017-07-29 12:00] VITALS: BP 126/77
[2017-07-29 15:44] LABS: INR 1.23 (0.85-1.17); PROTIME 15.4 SECONDS (11.6-15.0)
--- NOTE | 2017-07-29 15:54 | NUR ---
STILL WAITING ON PT INR TO COME BACK FROM LAB WILL GIVE COUMADIN WHEN BACK
[2017-07-29 16:00] VITALS: BP 156/98
--- NOTE | 2017-07-29 16:01 | NUR ---
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 Yes 0 * How many steps to enter\exit or inside your home? NONE 0 * PCP NONE DR. BRYANT, VP ORGANIZATIONAL DEVELOPMENT 0 * Pharmacy [facility] 0 * Preadmission Environment Home with Family 0 * ADLs Independent 0 * Equipment None 0 * Other Equipment NO MEDICAL EQUIPMENT PROVIDER 0 * List name and contact numbers for known caregivers / representatives who currently or will assist patient after discharge: GARCIA JONES, GRANDMOTHER, 0 * Community resources currently utilized Other 0 * Please name any agencies selected above. OUTPATIENT DIALYSIS, [facility], M/W/F, 0630AM, [facility] TRANSP[facility]ATION 0 * Additional services required to return to the preadmission environment? Yes * Can the patient safely return to the preadmission environment? Yes 0 * Has this patient been hospitalized within the prior 30 days at any hospital? No 0 CM MET WITH PT IN ROOM TO DISCUSS DISCHARGE PLANNING AND NEEDS. PT REPORTS LIVING AT HOME INDEPENDENTLY WITH HIS MOTHER. PT HAS NO MEDICAL EQUIPMENT AND NO OUTSIDE SERVICES ASSISTING IN THE HOME. PT ATTENDS OUTPATIENT DIALYSIS ON MWF SCHEDULE, 0630AM, AND USES [employer] TRANSPORTATION. CM RECEIVED HOME HEALTH ORDER, DISCUSSED AVAILABILITY OF HOME HEALTH, REHAB SERVICES AND MEDICAL EQUIPMENT. PT REPORTS WANTING TO USE [facility] AGAIN; CHOICE SIGNED. PT REPORTS HE NEEDS [facility] TRANSPORT TO PICK HER UP FOR DISCHARGE HOME. IMPORTANT MESSAGE FROM MEDICARE PROVIDED AND EXPLAINED. CM CALLED MEDICAID TRANSPORTATION SERVICES, , SPOKE TO MARILYNN AND SCHEDULED [facility]AT MARINE PROPULSION TECHNICIAN AT 2PM FOR TOMORROW, PROVIDED NURSES STATION PHONE NUMBER FOR SUPPLY CHAIN TECHNICIAN TO CALL WHEN THEY ARRIVE. CONFIRMATION # [id number]. PT NOTIFIED OF MARINE PROPULSION TECHNICIAN TIME. CM CALLED [facility], [employer] OFFICE, , SPOKE TO KRISTINE WHO REPORTED THEY WILL ACCEPT PT AND ADVISED CM THAT PT WAS NON COMPLIANT WITH HOME HEALTH LAST TIME AND WAS NOT ABLE TO BE LOCATED TO CHANGE HIS WOUND VAC FOR OVER ONE WEEK. PT WAS NOT HOME FOR MANY VISITS BY HOME HEALTH. CM FAXED REFERRAL TO [facility] AT [phone]. CM NOTIFIED PT AND NOTIFIED PT THAT HE NEEDS TO SCHEDULE [facility] TRANSPORT WELL BEFORE 48 HOURS FOR HIS FOLLOW UP APPOINTMENT WITH DR. YOUSIF. PT REPORTED UNDERSTANDING. CM DISCUSSED COMPLIANCE WITH HOME HEALTH AND THAT HOME HEALTH WILL TRY AGAIN, BUT IF PT IS NOT HOME FOR APPOINTMENTS, HOME HEALTH WILL CANCEL SERVICES AND MAY NOT ACCEPT HIM AGAIN, FORCING PT TO FIND CARE AN OUTPATIENT. PT REPORTED UNDERSTANDING. CM ASKED PT IF HE UNDERSTANDS THAT HE IS RISKING INFECTIONS, LOSS OF LIMBS AND POSSIBLY LOSS OF LIFE WITH NOT BEING AVAILABLE FOR HOME HEALTH TO PROPERLY CARE FOR WOUNDS. PT REPORTS UNDERSTANDING. FOR DISCHARGE, NOTIFY [facility] AT [phone]; FAX DISCHARGE TO [facility] AT [phone]. MEDICAID VAN TO MARINE PROPULSION TECHNICIAN PT AT 2PM TOMORROW, 07-30-17. Features Editor: Sha Palomino
--- NOTE | 2017-07-29 18:29 | NUR ---
PT SITTING UP IN BED SLEEPING NO S/S DISTRESS NOTED RR EVEN AND UNLABORED
--- NOTE | 2017-07-29 19:14 | NUR ---
PT ASLEEP. NAME AND DATE WRITTEN ON BOARD. PT RESPIRATIONS ARE EVEN AND UNLABORED. 16. PT HAS NO S/S OF DISTRESS. BED LOW AND CALL LIGHT IN REACH. WILL CPOC
--- NOTE | 2017-07-30 01:02 | NUR ---
PT C/O LEFT ARM PAIN AND STERNUM PAIN THAT IS IN CENTER OF UPPER CHEST. STATES IT IS THROBBING. BUPREMEX GIVEN PRN PAIN. ULTRAM GIVEN A SCHEDULED. PT SITTING UP EATING GRAMCRACKERS. EKG DONE. IN CHART. PT DENIES ANY OTHER NEEDS. NO S/S OF DISTRESS. WILL CPOC
[2017-07-30 04:00] VITALS: BP 134/83
[2017-07-30 05:41] LABS: BASOPHILS 0.3 % (0-2); EOSINOPHILS 6.4 % (0-7); HEMATOCRIT 29.7 % (42.0-54.0); HEMOGLOBIN 10.4 g/dL (13.5-17.5); IMMATURE GRANULOCYTES 0.3 % (0-5); LYMPHOCYTES 18.6 % (15-50); MCV 91.4 fL (80.0-100.0); MEAN PLATELET VOLUME 9.2 fL (7.4-10.4); NEUTROPHILS 58.4 % (40-80); PLATELET COUNT 135 10x3/uL (130-400); RBC 3.25 10x6/uL (4.20-6.10); RDW 14.6 % (11.5-14.5); WBC 3.9 10x3/uL (4.8-10.8)
[2017-07-30 06:09] LABS: ANION GAP 19.1 mmol/L (8-16); CALCIUM 8.2 mg/dL (8.5-10.1); CARBON DIOXIDE 24.6 mmol/L (21.0-32.0); POTASSIUM - SERUM 3.7 mmol/L (3.5-5.1)
[2017-07-30 06:19] LABS: INR 2.83 (0.85-1.17)
[2017-07-30 06:22] LABS: CREATININE - SERUM 12.8 mg/dL (0.6-1.3)
--- NOTE | 2017-07-30 06:27 | NUR ---
PT RESTING IN BED. STATES THAT CHEST PAIN IS BETTER BUT STILL HURTS IN LEFT ARM. TOLD PT HIS ULTRAM IS SCHEDULED FOR 0800 AND THAT SHOULD HELP RELIEVE HIS PAIN. PT HAS NO S/S OF DISTRESS. WILL CPOC
--- NOTE | 2017-07-30 07:20 | NUR ---
REPORT RECIVED. RR EVEN AND UNLABORED, PT REQUESTING PAIN PILL. WILL GIVE WITH MORNING MEDS. SPOKE TO DIALYSIS REGARDING BP MEDS THIS MORNING. [facility] NURSE TOLD ME TO HOLD BP MEDS PRIOR TO DIALYSIS. WILL CTM.
[2017-07-30 08:00] VITALS: BP 139/86
--- NOTE | 2017-07-30 09:15 | NUR ---
PT TRANSPORTED TO DIALYSIS BY BED X2 ASSIST.
[2017-07-30] MEDS ORDERED: PLAVIX75 MG PO (12:01)
[2017-07-30] MEDS ORDERED: MINOCIN50 MG PO (12:03)
--- NOTE | 2017-07-30 13:53 | NUR ---
PT D/C. DISCHARGE INSTRUCTIONS PROVIDED. PT VERBALIZED UNDERSTANDING AND DENIES FUTHER QUESTIONS. PAPERWORK SIGNED. CVL DRESSING REMOVED WITH CATHETER TIP INTACT. DIRECT PRESSURE HELD FOR 5 MINUTES. PT INSTRUCTED TO LAY FLAT FOR AT LEAST 10 MINUTES. VERBALIZED UNDERSTANDING. DENIES FURTHER NEEDS WILL CALL WHEN READY TO GO. WILL BE GOING HOME VIA BUS. WILL CTM UNTIL D/C.
--- NOTE | 2017-07-30 15:10 | NUR ---
Patient Name: SYL COONEY Encounter No: [id number] : 1990 Primary Insurance: MEDICARE A & B Anticipated DC Date: 07-30-2017 Planned Disposition: Home Health Service External Planned Provider: [facility] DCP follow-up note: CM RECEIVED DISCHARGE ORDERS, SPOKE TO PT IN ROOM AFTER DIALYSIS WHO IS IN AGREEMENT WITH DISCHARGE HOME WITH HOME HEALTH TODAY. SCAT TO ORANGE PICKER MACHINE OPERATOR AT 2PM OR AFTER TODAY. CM NOTIFIED MEREDITH AT [employer] AT [phone]; FAX EDDISCHARGE TO [facility] AT [phone]. Data Management Engineer: Sha Palomino
--- NOTE | 2017-09-07 13:00 | OP ---
PATIENT NAME: SYL COONEY MEDICAL RECORD: [id number] :[birth year] LOCATION:D. D.2134 ADMISSION DATE:07/27/17 SURGEON: GENEVIEVE YOUSIF MD DATE OF OPERATION: 07/27/2017 REFERRING PHYSICIAN: Dr. Bryant of [facility]. SURGEON: Genevieve Yousif MD ANESTHESIA: General endotracheal per WELL SURVEYING ENGINEER. 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 OPERATION PERFORMED: Ultrasound-guided access and venogram via the left internal jugular vein, demonstrating extensive occlusive changes and then removal of right internal jugular tunneled dialysis catheter. Performance of a superior vena cavogram and balloon angioplasty of the left internal jugular brachiocephalic vein and superior vena cava, and then insertion of a HeRO outflow device into the right atrium via the right internal jugular vein. Then, implantation of a PTFE AV graft in the left arm from the brachial artery to the deltopectoral groove where it was connected to the new HeRO outflow device, which then passed medially across the midline to dive down into the right internal jugular to the right atrium. Also, because of poor venous access, I used ultrasound guidance and placed a non-tunneled central venous line via the left femoral vein. SURGEON: Genevieve Yousif MD GENERAL: General endotracheal. PREOPERATIVE NOTE: Mr. Cooney is an unfortunate young man only 26 years of age whose life has been difficulty. 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 At any rate, he is dependent on hemodialysis at this time and has extensive central vein stenoses and has exhausted many avenues for dialysis access. He most recently had a HeRO graft on the right and had to be removed because of staphylococcal infection. He is presently dialyzing with a right internal jugular tunneled dialysis catheter. He is brought to the operating room to try to implant a HeRO on the left side. With the patient under general endotracheal anesthesia, he was prepped and draped in a sterile manner. The left femoral vein was visualized with ultrasound, and using standard Seldinger technique an Arrow triple lumen central venous catheter was inserted and advanced up towards the vena cava without difficulty. It was sutured in place. All 3 lumens were accessed and aspirated, free return of blood confirmed. They were then flushed with saline and then heparin lock solution, clamped and capped. This IV was available then to the venue coordinator for IV access during rest of the operation. OPERATIVE REPORT [id number] IVETSYL I then accessed the left internal jugular vein or tributary of it with ultrasound guidance and micropuncture technique. Contrast injection demonstrated occlusion of the internal and external jugular veins and filling of the right-sided neck veins via collaterals with no direct flow into the superior vena cava from the left side. I then made an incision on the right and exposed his tunneled dialysis catheter, which I removed over a guidewire. I removed the subcutaneous and external segments and sent the cuffed subcutaneous segment for culture. The intravascular segment was removed over the guidewire and an introducer sheath inserted. Contrast injection was then made, which revealed a rigid calcified sheath all the way from skin entry site to the right atrium. I subsequently dilated this tract with an 8 mm angioplasty balloon and then was able to insert a HeRO outflow device and positioned its tip well down into the right atrium and confirmed its position as appropriate by another contrast injection. The HeRO device was then flushed with heparinized saline and clamped. An incision was made in the left deltopectoral groove and carried down to the pectoral fascia and the HeRO device was then pulled through a subcutaneous tunnel across the midline and over to the right deltopectoral groove. I then chose a 4 mm to 6 mm tapered Acuseal PTFE graft. I used the tapered graft because of the patient's history of steal on the right side. An incision was made to expose the brachial artery and it was controlled with Silastic loops. It was opened and flushed with heparinized saline proximally and distally and treated with topical papaverine. The taper graft was shortened and beveled and anastomosed end-to-side to the artery with running 6-0 Prolene. The suture line was hemostasis when flow was restored. The graft was flushed with heparinized saline and then pulled through long subcutaneous tunnel up to the deltopectoral groove where a HeRO connector was used to connect the Acuseal to the HeRO outflow device. At that point, all clamps and loops were released, excellent flow was immediately established in the new AV graft. The PTFE connector segment was fixed to the adjacent pectoral fascia with a 2-0 Prolene suture. The wounds were then all irrigated with Ancef and gentamicin solution, and closed with interrupted inverted 3-0 Vicryl and running intracuticular 4-0 Monocryl and Dermabond glue. Dressings of Maxorb Ag, Tegaderm and Cavilon skin prep were applied and the patient was awakened and extubated, and taken to the recovery room. Chest x-ray will be obtained in the recovery room, documented again the positioning of the HeRO device. The patient will need to have dialysis probably tomorrow here in the hospital. When he does go home, he will need to have Acuseal protocol followed for 2 weeks and a return appointment scheduled to see me in my office in about 2 weeks. Blood loss during the procedure was about 50 cc, none was replaced intraoperatively. No drain was used. No surgical specimen was submitted for histopathology. The subcutaneous cuff segment of catheter was sent for culture. TRANSINT:[id number] Voice Confirmation ID: [id number] DOCUMENT ID: [id number] GENEVIEVE YOUSIF MD at 1300 CC: GUIDO BRYANT III MD [id number] DICTATION DATE: 08/29/17 1443 ORTHOPEDIC BRACE MAKER: 08/29/17 1534 DIS IN 07/30/17 [address] [place] [address]
== END 2017-07-30 13:59 | disposition home health service (06) | DRG 252 ==
LOC: D.OPS 07:23 → D.M2 17:28 → D.OPS 17:29 → D.M2 17:30
PROVIDERS: Internal Medicine Nephrology; Surgery; ADMIT Internal Medicine Nephrology
PROC: 03180JV Bypass Left Brachial Artery to Superior Vena Cava with Synthetic Substitute, Open Approach (ICD-10-PCS; 2017-07-27)
PROC: 03180KD Bypass Left Brachial Artery to Upper Arm Vein with Nonautologous Tissue Substitute, Open Approach (ICD-10-PCS; 2017-07-27)
PROC: B5131ZZ Fluoroscopy of Right Jugular Veins using Low Osmolar Contrast (ICD-10-PCS; 2017-07-27)
PROC: B5181ZZ Fluoroscopy of Superior Vena Cava using Low Osmolar Contrast (ICD-10-PCS; 2017-07-27)
PROC: 05PY3YZ Removal of Other Device from Upper Vein, Percutaneous Approach (ICD-10-PCS; 2017-07-27)
PROC: 027 Heart and Great Vessels, Dilation (ICD-10-PCS; principal; 2017-07-27 11:30)
PROC: 05743ZZ Dilation of Left Innominate Vein, Percutaneous Approach (ICD-10-PCS; 2017-07-27 11:30)
PROC: 057N3ZZ Dilation of Left Internal Jugular Vein, Percutaneous Approach (ICD-10-PCS; 2017-07-27 11:30)
PROC: 5A1D70Z Performance of Urinary Filtration, Intermittent, Less than 6 Hours Per Day (ICD-10-PCS; 2017-07-28)
DX: I82.291 Chronic embolism and thrombosis of other thoracic veins (principal); N18.6 End stage renal disease; I12.0 Hypertensive chronic kidney disease with stage 5 chronic kidney disease or end stage renal disease; D68.59 Other primary thrombophilia; I82.211 Chronic embolism and thrombosis of superior vena cava

== ENCOUNTER 2018-05-16 17:28 | Inpatient (IN) | payer MEDICARE ==
[~2018-05-16] VITALS: Ht 167.6 cm; Wt 59.1 kg
[~2018-05-16 17:28] MED LIST changes: +MINOCIN50 MG PO; +PLAVIX75 MG PO
[2018-05-16 18:17] LABS: BASOPHILS 0.1 % (0-2); EOSINOPHILS 0.6 % (0-7); HEMATOCRIT 33.8 % (42.0-54.0); HEMOGLOBIN 11.9 g/dL (13.5-17.5); IMMATURE GRANULOCYTES 0.1 % (0-5); LYMPHOCYTES 10.3 % (15-50); MCHC 35.2 g/dL (31.0-37.0); MCV 96.6 fL (80.0-100.0); MEAN PLATELET VOLUME 9.8 fL (7.4-10.4); MONOCYTES 6.8 % (2-11); NEUTROPHILS 82.1 % (40-80); PLATELET COUNT 109 10x3/uL (130-400); RDW 15.1 % (11.5-14.5); WBC 8.1 10x3/uL (4.8-10.8)
[2018-05-16 18:32] LABS: ALBUMIN 3.4 g/dL (3.4-5.0); ANION GAP 22.5 mmol/L (8-16); BILIRUBIN - TOTAL 0.64 mg/dL (0.2-1.3); CARBON DIOXIDE 21.2 mmol/L (21.0-32.0); CREATININE - SERUM 17.8 mg/dL (0.6-1.3); POTASSIUM - SERUM 5.7 mmol/L (3.5-5.1); PROTEIN - SERUM 8.1 g/dL (6.4-8.2)
[2018-05-16 20:43] LABS: APTT 53.1 SECONDS (22.8-39.4)
[2018-05-16 20:44] VITALS: BP 133/112
[2018-05-16 20:47] LABS: INR 1.26 (0.85-1.17); PROTIME 15.4 SECONDS (11.6-15.0)
[2018-05-16 21:00] VITALS: BP 130/94
[2018-05-16 22:00] VITALS: BP 161/80
[2018-05-16 23:51] LABS: HEMATOCRIT 34.7 % (42.0-54.0); HEMOGLOBIN 12.5 g/dL (13.5-17.5); MCH 34.2 pg (26.0-34.0); MCV 94.8 fL (80.0-100.0); MEAN PLATELET VOLUME 9.2 fL (7.4-10.4); RBC 3.66 10x6/uL (4.20-6.10); RDW 15.9 % (11.5-14.5); WBC 8.1 10x3/uL (4.8-10.8)
[2018-05-17 01:14] VITALS: BP 126/52; BMI 21.0
[2018-05-17 06:11] VITALS: BP 134/77
[2018-05-17 06:40] LABS: BASOPHILS 0.2 % (0-2); EOSINOPHILS 2.7 % (0-7); HEMATOCRIT 35.1 % (42.0-54.0); HEMOGLOBIN 12.3 g/dL (13.5-17.5); IMMATURE GRANULOCYTES 0.2 % (0-5); LYMPHOCYTES 27.3 % (15-50); MCH 34.1 pg (26.0-34.0); MEAN PLATELET VOLUME 8.8 fL (7.4-10.4); MONOCYTES 6.5 % (2-11); NEUTROPHILS 63.1 % (40-80); RBC 3.61 10x6/uL (4.20-6.10); RDW 15.2 % (11.5-14.5)
[2018-05-17 06:44] LABS: MCV 97.2 fL (80.0-100.0); PLATELET COUNT 109 10x3/uL (130-400); WBC 5.2 10x3/uL (4.8-10.8)
[2018-05-17 06:46] LABS: INR 1.26 (0.85-1.17); PROTIME 15.3 SECONDS (11.6-15.0)
[2018-05-17 06:48] LABS: APTT 106.2 SECONDS (22.8-39.4)
[2018-05-17 06:58] LABS: ANION GAP 22.5 mmol/L (8-16); CARBON DIOXIDE 20.4 mmol/L (21.0-32.0); CREATININE - SERUM 18.9 mg/dL (0.6-1.3); POTASSIUM - SERUM 5.9 mmol/L (3.5-5.1)
[2018-05-17 06:59] LABS: CALCIUM 6.9 mg/dL (8.5-10.1)
[2018-05-17 08:54] VITALS: BP 103/58
[2018-05-17 16:31] VITALS: BP 108/55
[2018-05-17 20:00] VITALS: BP 95/61
[2018-05-18 03:20] LABS: HEMATOCRIT 33.6 % (42.0-54.0); HEMOGLOBIN 11.7 g/dL (13.5-17.5); MCH 33.7 pg (26.0-34.0); MCHC 34.8 g/dL (31.0-37.0); MCV 96.8 fL (80.0-100.0); RBC 3.47 10x6/uL (4.20-6.10); RDW 15.1 % (11.5-14.5); WBC 5.1 10x3/uL (4.8-10.8)
[2018-05-18 04:00] VITALS: BP 113/61
[2018-05-18 07:57] LABS: CARBON DIOXIDE 23.6 mmol/L (21.0-32.0); CREATININE - SERUM 16.4 mg/dL (0.6-1.3)
[2018-05-18 07:59] LABS: ANION GAP 24.4 mmol/L (8-16); CALCIUM 6.9 mg/dL (8.5-10.1)
[2018-05-18 08:07] VITALS: BP 99/57
[2018-05-30 13:33] VITALS: Ht 167.6 cm; Wt 59.1 kg
== END 2018-05-18 13:19 | disposition home or self-care (01) | DRG 314 ==
LOC: D.ER 17:28 → D.MS 22:39
PROVIDERS: Family Medicine; Internal Medicine Nephrology
PROC: 5A1D70Z Performance of Urinary Filtration, Intermittent, Less than 6 Hours Per Day (ICD-10-PCS; principal; 2018-05-17)
DX: T82.49XA Other complication of vascular dialysis catheter, initial encounter (principal); N18.6 End stage renal disease; I12.0 Hypertensive chronic kidney disease with stage 5 chronic kidney disease or end stage renal disease; Z99.2 Dependence on renal dialysis; Z95.0 Presence of cardiac pacemaker

== ENCOUNTER 2018-08-29 15:22 | Inpatient (IN) | payer MEDICARE ==
[~2018-08-29] VITALS: Ht 167.6 cm; Wt 59.1 kg
--- NOTE | ~2018-08-29 | MORECARE ---
CASE MANAGEMENT DISCHARGE SUMMARY PATIENT: SYL COONEY UNIT: [id number] ADM DATE: 08/29/18 AGE: 27 : [birth year] SEX: M ROOM/BED: D.2113 AUTHOR: KAYLEE,DOC PHYSICIAN: REFERRING PHYSICIAN: REY KING MD DATE OF SERVICE: 09/13/18 Discharge Plan Patient Name: SYL COONEY Facility: [facility]:[place] : 1990 Planned Disposition: Home with Home Health Anticipated Discharge Date: 09/14/18 Discharge Date: Expected LOS: 16 Initial Reviewer: [email or web address] Initial Review Date: 08/29/2018 Generated: 09/13/18 9:22 am Comments DCP- Discharge Planning Updated by [email or web address]: Sha Palomino on 09/12/18 4:[address] Patient Name: SYL COONEY Encounter No: [id number] : 1990 Primary Insurance: MEDICARE A & B Anticipated DC Date: 09-14-2018 Planned Disposition: Home with Home Health External Planned Provider: [facility] DCP follow-up note: CM RECEIVED HOME HEALTH ORDER, MET WITH PT IN ROOM, VERIFIED PT WILL BE GOING HOME WITH MOTHER, [facility] [place], [place]. PT'S MOTHER TO [place] TESTER PT. PT DENIES FURHTER NEEDS OTHER THAN HOME HEALTH, REPORTS HIS MOTHER IS TEACHABLE AND WILL BE ASSISTING WITH WOUND CARE NEEDED AT HOME. PT HAS NO CHOICE IN HOME HEALTH PROVIDER, CHOICE LETTER SIGNED. PT ASKED THAT IF HE COULD USE THE ONE HE HAD LAST TIME, THEY "DID GOOD FOR ME." IMPORTANT MESSAGE FROM MEDICARE PROVIDED AND EXPLAINED. CM REVIEWED CHART, PT HAS USED [facility] IN THE PAST. CM CALLED [facility] IN [place], , SPOKE TO DELISA AND PROVIDED REFERRAL INFORMATION. DELISA CHECKED WITH DIRECTOR, CALLED CM AND INFORMED CM THAT THEY CAN ACCEPT FOR WOUND CARE. CM FAXED REFERRAL TO [facility] AT [phone]. CM SPOKE TO SOSA OF [facility] WHO INFORMED CM THAT PT MAY DISCHARGE AFTER DIALYSIS ON WEDNESDAY AND ASKED THAT CM FOLLOW UP WITH DR. GAMA REGARDING ANCEF AFTER DISCHARGE. LEMUEL VERIFIED THAT THIS CAN BE DONE AFTER DIALYSIS DEPENDING ON DOSE AND DAYS NEEDED. CM PAGED AND SPOKE TO DR. GAMA WHO PROVIDED INSTRUCTIONS FOR ANCEF AFTER DIALYSIS: 2 GRAMS IV WEDNESDAY; 2GRAMS IV WEDNESDAY, 3GRAMS IF WEDNESDAY. FOR DISCHARGE, NOTIFY [facility] AT [phone], FAX DISCHARGE INFORMATION TO [facility] AT [phone]. Sha Palomino, CASE MANGEMENT DCP- Discharge Planning Updated by [id number]: Piedad Robin on 09/09/18 6:[address] CM received notice to start working on discharge planning. Dr. Jasso stated that patient would need Home Health and set up with wound vac. CM reviewed notes from Dr. Lindquist 09/02/18 stated patient wound need to stay inpatient until secondary closure. CM notified Dr. Jasso and he stated he didn't realize that was the plan. Dr. Jasso stated to get with Dr. Lindquist next week regarding plan. CM will continue to follow and assist as needed with discharge planning / needs. DCP- Discharge Planning Updated by [id number]: Piedad Robin on 09/08/18 5:[address] Patient Name: SYL COONEY Admission Status: Elective Accout number: [id number] Admission Date: 08-29-2018 : 1990 Admission Diagnosis:INFECT/INFLM REACT D/T OTH CARDI/VASC DEV/IMPLNT/GRFT, Attending: REY KING Current LOS: 10 Anticipated DC Date: Planned Disposition: Home Primary Insurance: MEDICARE A & B Discharge Planning Comments: CM met with patient at bedside. Patient states he plans on staying with his grandmother here in [place] upon discharge. He states he doesn't know the address but it is just down the road. He states that prior to admission he lived with his mother in [place]. He had dialysis MWF. Patient denies any discharge needs at this time. CM will need to contact Michaela Espino to set up dialysis in [place] if patient continues to plan on living with grandmother. CM will continue to follow and assist as needed with discharge planning / needs. Grape Picker: Piedad Robin DCP- Discharge Planning Updated by [id number]: Piedad Robin on 09/07/18 4:[address] CM received a call from patients mother Osbaldo Cooney this am requesting FMLA papers to filled out. CM requested them to fax paperwork. CM received paperwork and filled it out appropriately and returned papers to patients Grandmother that was in patients room. CM will continue to follow and assist as needed with discharge planning /needs. DCP- Discharge Planning Updated by [email or web address]: Piedad Robin on 09/07/18 3:[address] Late Entry 09/05/18 @1200 CM attempted to see patient regarding discharge planning but he is currently on Ventilator. CM will continue to follow and assist as needed with discharge planning / needs. DCPIA - Discharge Planning Initial Assessment Updated by [id number]: Sha Palomino on 09/12/18 4:55 pm * Is the patient Alert and Oriented? Yes * How many steps to enter\\exit or inside your home? * PCP no pcp * Pharmacy [facility] in [place] * Preadmission Environment Home with Family * ADLs Independent * Equipment None * List name and contact numbers for known caregivers / representatives who currently or will assist patient after discharge: Rafia Parry, GRAND MOTHER, MOTHEROSBALDO, SISTER, NUPUR COONEY, * Verbal permission to speak to the caregivers and representatives has been obtained from the patient. Yes * Community resources currently utilized None * Please name any agencies selected above. hemodialysis MWF - in [place] * Additional services required to return to the preadmission environment? No * Can the patient safely return to the preadmission environment? Yes * Has this patient been hospitalized within the prior 30 days at any hospital? No Coverage Notice Reviewer: [email or web address] Palomino Notice Issued Date-Time: 09/12/2018 14:05 Notice Type: Patient Choice Letter Notice Delivered To: Patient Relationship to Patient: Veneer Jointer Operator Name: Delivery Method: HAND - Hand Delivered Moon Days: Prior Verbal Notification: Recipient Understood Notice: Yes Recipient Signature: Yes Med Rec Note Co-signed by Attending: Coverage Notice Comment: NO PREFERENCE FOR [facility] Reviewer: [email or web address] Samantha Palomino Notice Issued Date-Time: 09/12/2018 14:05 Notice Type: IM Discharge Notice Notice Delivered To: Patient Relationship to Patient: Veneer Jointer Operator Name: Delivery Method: HAND - Hand Delivered Moon Days: Prior Verbal Notification: Recipient Understood Notice: Yes Recipient Signature: Yes Med Rec Note Co-signed by Attending: Coverage Notice Comment: Last DP export: 09/12/18 4:05 Patient Name: SYL COONEY Page 10321 at 0822 All edits/amendments must be made on the electronic document DICTATION DATE: 09/13/18821 CHARTER COORDINATOR: RON 09/13/18821 RPT#: [id number] DC DATE: STATUS: ADM IN [facility] [address] [place] [address] END OF REPORT
--- NOTE | ~2018-08-29 | MORECARE ---
CASE MANAGEMENT DISCHARGE SUMMARY PATIENT: SYL COONEY UNIT: [id number] ADM DATE: 08/29/18 AGE: 27 : 88 SEX: M ROOM/BED: D.2314 AUTHOR: ROSALIA PAGE PHYSICIAN: REFERRING PHYSICIAN: REY KING MD DATE OF SERVICE: 09/08/18 Discharge Plan Patient Name: SYL COONEY [facility] [facility] 1990 Planned Disposition: Home Anticipated Discharge Date: Discharge Date: Expected LOS: Initial Reviewer: [email or web address] Initial Review Date: 08/29/2018 Generated: 09/08/18 6:54 pm Comments DCP- Discharge Planning Updated by [email or web address]: Piedad Robin on 09/07/18 4:[address] CM received a call from patients mother Adriana Cooney this am requesting [place] papers to filled [place]. CM requested them to fax paperwork. CM received paperwork and filled it out appropriately and returned papers to patients Grandmother that was in patients room. CM will continue to follow and assist as needed with discharge planning /needs. DCP- Discharge Planning Updated by [email or web address]: Piedad Robin on 09/07/18 3:[address] Late Entry 09/05/18 @1200 CM attempted to see patient regarding discharge planning but he is currently on Ventilator. CM will continue to follow and assist as needed with discharge planning / needs. Patient Name: SYL COONEY Page [phone] at 1754 All edits/amendments must be made on the electronic document DICTATION DATE: 09/08/181752 SIZING MACHINE AND DRIER OPERATOR: RON 09/08/181752 RPT#: [id number] DC DATE: STATUS: ADM IN [facility] [address] [place] [address] END OF REPORT
--- NOTE | ~2018-08-29 | MORECARE ---
CASE MANAGEMENT DISCHARGE SUMMARY PATIENT: SYL COONEY UNIT: [id number] ADM DATE: 08/29/18 AGE: 27 : 88 SEX: M ROOM/BED: D.2113 AUTHOR: KAYLEE,DOC PHYSICIAN: REFERRING PHYSICIAN: REY KING MD DATE OF SERVICE: 09/14/18 Discharge Plan Patient Name: SYL COONEY Facility: [facility]:[place] : 1990 Planned Disposition: Home with Home Health Anticipated Discharge Date: 09/14/18 Discharge Date: Expected LOS: 16 Initial Reviewer: [email or web address] Initial Review Date: 08/29/2018 Generated: 09/14/18 4:10 pm Comments DCP- Discharge Planning Updated by [email or web address]: Sha Palomino on 09/14/18 2:[address] Patient Name: SYL COONEY Encounter No: [id number] : 1990 Primary Insurance: MEDICARE A & B Anticipated DC Date: 09-14-2018 Planned Disposition: Home with Home Health External Planned Provider: [facility] DCP follow-up note: CM RECEIVED DISCAHRGE ORDER, SPOKE TO PT IN ROOM WHO REPORTS AGREEMENT WITH DISCHARGE AND HIS GRANDMOTHER IS PICKING HIM UP. PT WILL GO HOME TO [place] TOMORROW WHEN HIS MOTHER CAN PICK HIM UP. CM PROVIDED PT WITH [employer] PHONE NUMBER AND INSTRUCTED TO CALL WHEN HE ARRIVES IN [place]. CM FAXED DISCHARGE INFORMATION TO [facility] AT [phone]. CM CALLED AND SPOKE TO SILVIO AT [facility] AT [phone], PT IS ON SCHEDULE FOR FOLLOW UP TOMORROW FOR WOUND CARE, JAMARCUS Ospina MANGEMENT DCP- Discharge Planning Updated by [email or web address]: Sha Palomino on 09/12/18 4:[address] Patient Name: SYL COONEY Encounter No: [id number] : 1990 Primary Insurance: MEDICARE A & B Anticipated DC Date: 09-14-2018 Planned Disposition: Home with Home Health External Planned Provider: [facility], [facility] DCP follow-up note: CM RECEIVED HOME HEALTH ORDER, MET WITH PT IN ROOM, VERIFIED PT WILL BE GOING HOME WITH MOTHER, [address], [place]. PT'S MOTHER TO DIGESTER OPERATOR PT. PT DENIES FURHTER NEEDS OTHER THAN HOME HEALTH, REPORTS HIS MOTHER IS TEACHABLE AND WILL BE ASSISTING WITH WOUND CARE NEEDED AT HOME. PT HAS NO CHOICE IN HOME HEALTH PROVIDER, CHOICE LETTER SIGNED. PT ASKED THAT IF HE COULD USE THE ONE HE HAD LAST TIME, THEY "DID GOOD FOR ME." IMPORTANT MESSAGE FROM MEDICARE PROVIDED AND EXPLAINED. CM REVIEWED CHART, PT HAS USED [facility] IN THE PAST. CM CALLED [facility] IN [place], , SPOKE TO DELISA AND PROVIDED REFERRAL INFORMATION. DELISA CHECKED WITH DIRECTOR, CALLED CM AND INFORMED CM THAT THEY CAN ACCEPT FOR WOUND CARE. CM FAXED REFERRAL TO [facility] AT [phone]. CM SPOKE TO SOSA [facility] WHO INFORMED CM THAT PT MAY DISCHARGE AFTER DIALYSIS ON WEDNESDAY AND ASKED THAT CM FOLLOW UP WITH DR. GAMA REGARDING ANCEF AFTER DISCHARGE. LEMUEL VERIFIED THAT THIS CAN BE DONE AFTER DIALYSIS DEPENDING ON DOSE AND DAYS NEEDED. CM PAGED AND SPOKE TO DR. GAMA WHO PROVIDED INSTRUCTIONS FOR ANCEF AFTER DIALYSIS: 2 GRAMS IV WEDNESDAY; 2GRAMS IV WEDNESDAY, 3GRAMS IF WEDNESDAY. FOR DISCHARGE, NOTIFY [facility] AT [phone], FAX DISCHARGE INFORMATION TO [facility] AT [phone]. Sha Palomino, CASE MANGEMENT DCP- Discharge Planning Updated by [email or web address]: Piedad Robin on 09/09/18 6:[address] CM received notice to start working on discharge planning. Dr. Jasso stated that patient would need Home Health and set up with wound vac. CM reviewed notes from Dr. Lindquist 09/02/18 stated patient wound need to stay inpatient until secondary closure. CM notified Dr. Jasso and he stated he didn't realize that was the plan. Dr. Jasso stated to get with Dr. Lindquist next week regarding plan. CM will continue to follow and assist as needed with discharge planning / needs. DCP- Discharge Planning Updated by [id number]: Piedad Robin on 09/08/18 5:[address] Patient Name: SYL COONEY Admission Status: Elective Accout number: [id number] Admission Date: 08-29-2018 : 1990 Admission Diagnosis:INFECT/INFLM REACT D/T OTH CARDI/VASC DEV/IMPLNT/GRFT, Attending: REY KING Current LOS: 10 Anticipated DC Date: Planned Disposition: Home Primary Insurance: MEDICARE A & B Discharge Planning Comments: CM met with patient at bedside. Patient states he plans on staying with his grandmother here in [place] upon discharge. He states he doesn't know the address but it is just down the road. He states that prior to admission he lived with his mother in [place]. He had dialysis MWF. Patient denies any discharge needs at this time. CM will need to contact Michaela Espino to set up dialysis in [place] if patient continues to plan on living with grandmother. CM will continue to follow and assist as needed with discharge planning / needs. Sales Promotion Director: Piedad Robin DCP- Discharge Planning Updated by [email or web address]: Piedad Robin on 09/07/18 4:[address] CM received a call from patients mother Adriana Cooney this am requesting [facility] papers to filled out. CM requested them to fax paperwork. CM received paperwork and filled it out appropriately and returned papers to patients Grandmother that was in patients room. CM will continue to follow and assist as needed with discharge planning /needs. DCP- Discharge Planning Updated by [id number]: Piedad Robin on 09/07/18 3:[address] Late Entry 09/05/18 @1200 CM attempted to see patient regarding discharge planning but he is currently on Ventilator. CM will continue to follow and assist as needed with discharge planning / needs. DCPIA - Discharge Planning Initial Assessment Updated by [email or web address]: Sha Palomino on 09/12/18 4:55 pm * Is the patient Alert and Oriented? Yes * How many steps to enter\\exit or inside your home? * PCP no pcp * Pharmacy [facility] in [place] * Preadmission Environment Home with Family * ADLs Independent * Equipment None * List name and contact numbers for known caregivers / representatives who currently or will assist patient after discharge: Rafia Parry, GRAND MOTHER, MOTHERADRIANA, SISTER, NUPUR COONEY, * Verbal permission to speak to the caregivers and representatives has been obtained from the patient. Yes * Community resources currently utilized None * Please name any agencies selected above. hemodialysis MWF - in [place] * Additional services required to return to the preadmission environment? No * Can the patient safely return to the preadmission environment? Yes * Has this patient been hospitalized within the prior 30 days at any hospital? No Coverage Notice Reviewer: [email or web address] Palomino Notice Issued Date-Time: 09/12/2018 14:05 Notice Type: Patient Choice Letter Notice Delivered To: Patient Relationship to Patient: Data Librarian Name: Delivery Method: HAND - Hand Delivered Moon Days: Prior Verbal Notification: Recipient Understood Notice: Yes Recipient Signature: Yes Med Rec Note Co-signed by Attending: Coverage Notice Comment: NO PREFERENCE FOR [facility] Reviewer: [email or web address] Palomino Notice Issued Date-Time: 09/12/2018 14:05 Notice Type: IM Discharge Notice Notice Delivered To: Patient Relationship to Patient: Data Librarian Name: Delivery Method: HAND - Hand Delivered Moon Days: Prior Verbal Notification: Recipient Understood Notice: Yes Recipient Signature: Yes Med Rec Note Co-signed by Attending: Coverage Notice Comment: Last DP export: 09/14/18 1:56 Patient Name: SYL COONEY Page 25004 at 1511 All edits/amendments must be made on the electronic document DICTATION DATE: 09/14/181509 BURLAPPER: RON 09/14/181509 RPT#: [id number] DC DATE: STATUS: ADM IN [facility] [address] [place] [address] END OF REPORT
--- NOTE | ~2018-08-29 | MORECARE ---
CASE MANAGEMENT DISCHARGE SUMMARY PATIENT: SYL COONEY UNIT: [id number] ADM DATE: 08/29/18 AGE: 27 : 88 SEX: M ROOM/BED: D.2113 AUTHOR: KAYLEE,DOC PHYSICIAN: REFERRING PHYSICIAN: REY KING MD DATE OF SERVICE: 09/12/18 Discharge Plan Patient Name: SYL COONEY Facility: [facility]:[place] : 1990 Planned Disposition: Home with Home Health Anticipated Discharge Date: 09/14/18 Discharge Date: Expected LOS: 16 Initial Reviewer: [email or web address] Initial Review Date: 08/29/2018 Generated: 09/12/18 5:43 pm Comments DCP- Discharge Planning Updated by [email or web address]: Piedad Robin on 09/09/18 6:[address] CM received notice to start working on discharge planning. Dr. Jasso stated that patient would need Home Health and set up with wound vac. CM reviewed notes from Dr. Lindquist 09/02/18 stated patient wound need to stay inpatient until secondary closure. CM notified Dr. Jasso and he stated he didn't realize that was the plan. Dr. Jasso stated to get with Dr. Lindquist next week regarding plan. CM will continue to follow and assist as needed with discharge planning / needs. DCP- Discharge Planning Updated by [email or web address]: Piedad Robin on 09/08/18 5:[address] Patient Name: SYL COONEY Admission Status: Elective Accout number: [id number] Admission Date: 08-29-2018 : 1990 Admission Diagnosis:INFECT/INFLM REACT D/T OTH CARDI/VASC DEV/IMPLNT/GRFT, Attending: REY KING Current LOS: 10 Anticipated DC Date: Planned Disposition: Home Primary Insurance: MEDICARE A & B Discharge Planning Comments: CM met with patient at bedside. Patient states he plans on staying with his grandmother here in [place] upon discharge. He states he doesn't know the address but it is just down the road. He states that prior to admission he lived with his mother in [place]. He had dialysis MWF. Patient denies any discharge needs at this time. CM will need to contact Michaelahina Espino to set up dialysis in [place] if patient continues to plan on living with grandmother. CM will continue to follow and assist as needed with discharge planning / needs. Research Support Specialist: Piedad Robin DCP- Discharge Planning Updated by [email or web address]: Piedad Robin on 09/07/18 4:[address] CM received a call from patients mother Adriana Cooney this am requesting [place] papers to filled out. CM requested them to fax paperwork. CM received paperwork and filled it out appropriately and returned papers to patients Grandmother that was in patients room. CM will continue to follow and assist as needed with discharge planning /needs. DCP- Discharge Planning Updated by [email or web address]: Piedad Robin on 09/07/18 3:[address] Late Entry 09/05/18 @1200 CM attempted to see patient regarding discharge planning but he is currently on Ventilator. CM will continue to follow and assist as needed with discharge planning / needs. DCPIA - Discharge Planning Initial Assessment Updated by [id number]: Piedad Robin on 09/08/18 5:55 pm * Is the patient Alert and Oriented? Yes * How many steps to enter\exit or inside your home? * PCP no pcp * Pharmacy [facility] in [place] * Preadmission Environment Home with Family * ADLs Independent * Equipment None * List name and contact numbers for known caregivers / representatives who currently or will assist patient after discharge: Rafia Parry [phone] * Verbal permission to speak to the caregivers and representatives has been obtained from the patient. Yes * Community resources currently utilized None * Please name any agencies selected above. hemodialysis MWF - in [place] * Additional services required to return to the preadmission environment? No * Can the patient safely return to the preadmission environment? Yes * Has this patient been hospitalized within the prior 30 days at any hospital? No Last DP export: 09/09/18 6:42 Patient Name: SYL COONEY Page 06317 at 1643 All edits/amendments must be made on the electronic document DICTATION DATE: 09/12/181641 CHIEF CRNA: RON 09/12/181641 RPT#: [id number] DC DATE: STATUS: ADM IN [facility] [address] [address] END OF REPORT
--- NOTE | ~2018-08-29 | MORECARE ---
CASE MANAGEMENT DISCHARGE SUMMARY PATIENT: SYL COONEY UNIT: [id number] ADM DATE: 08/29/18 AGE: 27 : 88 SEX: M ROOM/BED: D.2314 AUTHOR: KAYLEE,DOC PHYSICIAN: REFERRING PHYSICIAN: REY KING MD DATE OF SERVICE: 09/08/18 Discharge Plan Patient Name: SYL COONEY Facility: [facility]:[place] : 1990 Planned Disposition: Home Anticipated Discharge Date: Discharge Date: Expected LOS: Initial Reviewer: [email or web address] Initial Review Date: 08/29/2018 Generated: 09/08/18 7:01 pm Comments DCP- Discharge Planning Updated by [email or web address]: Piedad Robin on 09/07/18 4:[address] CM received a call from patients mother Adriaan Cooney this am requesting [place] papers to filled out. CM requested them to fax paperwork. CM received paperwork and filled it out appropriately and returned papers to patients Grandmother that was in patients room. CM will continue to follow and assist as needed with discharge planning /needs. DCP- Discharge Planning Updated by [email or web address]: Piedad Robin on 09/07/18 3:[address] Late Entry 09/05/18 @1200 CM attempted to see patient regarding discharge planning but he is currently on Ventilator. CM will continue to follow and assist as needed with discharge planning / needs. DCPIA - Discharge Planning Initial Assessment Updated by [email or web address]: Piedad Robin on 09/08/18 5:55 pm * Is the patient Alert and Oriented? Yes * How many steps to enter\exit or inside your home? * PCP no pcp * Pharmacy [facility] in [place] * Preadmission Environment Home with Family * ADLs Independent * Equipment None * List name and contact numbers for known caregivers / representatives who currently or will assist patient after discharge: Rafia Parry [phone] * Verbal permission to speak to the caregivers and representatives has been obtained from the patient. Yes * Community resources currently utilized None * Please name any agencies selected above. hemodialysis MWF - in [place] * Additional services required to return to the preadmission environment? No * Can the patient safely return to the preadmission environment? Yes * Has this patient been hospitalized within the prior 30 days at any hospital? No Last DP export: 09/08/18 4:54 Patient Name: SYL COONEY Page 46471 at 1801 All edits/amendments must be made on the electronic document DICTATION DATE: 09/08/181799 MULTIPLE RESAW OPERATOR: RON 09/08/181799 RPT#: [id number] DC DATE: STATUS: ADM IN [facility] [address] [place] [address] END OF REPORT
--- NOTE | ~2018-08-29 | MORECARE ---
CASE MANAGEMENT DISCHARGE SUMMARY PATIENT: SYL COONEY UNIT: [id number] ADM DATE: 08/29/18 AGE: 27 : 88 SEX: M ROOM/BED: D.2113 AUTHOR: KAYLEE,DOC PHYSICIAN: REFERRING PHYSICIAN: REY KING MD DATE OF SERVICE: 09/12/18 Discharge Plan Patient Name: SYL COONEY Facility: [facility]:[place] : 1990 Planned Disposition: Home with Home Health Anticipated Discharge Date: 09/14/18 Discharge Date: Expected LOS: 16 Initial Reviewer: [email or web address] Initial Review Date: 08/29/2018 Generated: 09/12/18 6:05 pm Comments DCP- Discharge Planning Updated by [email or web address]: Sha Palomino on 09/12/18 4:[address] Patient Name: SYL COONEY Encounter No: [id number] : 1990 Primary Insurance: MEDICARE A & B Anticipated DC Date: 09-14-2018 Planned Disposition: Home with Home Health External Planned Provider: [facility] OFFICE DCP follow-up note: CM RECEIVED HOME HEALTH ORDER, MET WITH PT IN ROOM, VERIFIED PT WILL BE GOING HOME WITH MOTHER, [facility] [place], [place]. PT'S MOTHER TO FIELD SUPERINTENDENT PT. PT DENIES FURHTER NEEDS OTHER THAN HOME HEALTH, REPORTS HIS MOTHER IS TEACHABLE AND WILL BE ASSISTING WITH WOUND CARE NEEDED AT HOME. PT HAS NO CHOICE IN HOME HEALTH PROVIDER, CHOICE LETTER SIGNED. PT ASKED THAT IF HE COULD USE THE ONE HE HAD LAST TIME, THEY "DID GOOD FOR ME." IMPORTANT MESSAGE FROM MEDICARE PROVIDED AND EXPLAINED. CM REVIEWED CHART, PT HAS USED [facility] IN THE PAST. CM CALLED [facility] IN [place], , SPOKE TO DELISA AND PROVIDED REFERRAL INFORMATION. DELISA CHECKED WITH DIRECTOR, CALLED CM AND INFORMED CM THAT THEY CAN ACCEPT FOR WOUND CARE. CM FAXED REFERRAL TO [facility] AT [phone]. CM SPOKE TO [facility]OSA [facility] WHO INFORMED CM THAT PT MAY DISCHARGE AFTER DIALYSIS ON WEDNESDAY AND ASKED THAT CM FOLLOW UP WITH DR. GAMA REGARDING ANCEF AFTER DISCHARGE. LEMUEL VERIFIED THAT THIS CAN BE DONE AFTER DIALYSIS DEPENDING ON DOSE AND DAYS NEEDED. CM PAGED AND SPOKE TO DR. GAMA WHO PROVIDED INSTRUCTIONS FOR ANCEF AFTER DIALYSIS: 2 GRAMS IV WEDNESDAY; 2GRAMS IV WEDNESDAY, 3GRAMS IF WEDNESDAY. FOR DISCHARGE, NOTIFY [facility] AT [phone], FAX DISCHARGE INFORMATION TO [facility] AT [phone]. Sha Palomino, CASE MANGEMENT DCP- Discharge Planning Updated by [id number]: Piedad Robin on 09/09/18 6:[address] CM received notice to start working on discharge planning. Dr. Jasso stated that patient would need Home Health and set up with wound vac. CM reviewed notes from Dr. Lindquist 09/02/18 stated patient wound need to stay inpatient until secondary closure. CM notified Dr. Jasso and he stated he didn't realize that was the plan. Dr. Jasso stated to get with Dr. Lindquist next week regarding plan. CM will continue to follow and assist as needed with discharge planning / needs. DCP- Discharge Planning Updated by [id number]: Piedad Robin on 09/08/18 5:[address] Patient Name: SYL COONEY Admission Status: Elective Accout number: [id number] Admission Date: 08-29-2018 : 1990 Admission Diagnosis:INFECT/INFLM REACT D/T OTH CARDI/VASC DEV/IMPLNT/GRFT, Attending: REY KING Current LOS: 10 Anticipated DC Date: Planned Disposition: Home Primary Insurance: MEDICARE A & B Discharge Planning Comments: CM met with patient at bedside. Patient states he plans on staying with his grandmother here in [place] upon discharge. He states he doesn't know the address but it is just down the road. He states that prior to admission he lived with his mother in [place]. He had dialysis MWF. Patient denies any discharge needs at this time. CM will need to contact Michaela Espino to set up dialysis in [place] if patient continues to plan on living with grandmother. CM will continue to follow and assist as needed with discharge planning / needs. Black Ash Worker: Piedad Robin DCP- Discharge Planning Updated by [id number]: Piedad Robin on 09/07/18 4:[address] CM received a call from patients mother Osbaldo Cooney this am requesting FMLA papers to filled out. CM requested them to fax paperwork. CM received paperwork and filled it out appropriately and returned papers to patients Grandmother that was in patients room. CM will continue to follow and assist as needed with discharge planning /needs. DCP- Discharge Planning Updated by [email or web address]: Piedad Robin on 09/07/18 3:[address] Late Entry 09/05/18 @1200 CM attempted to see patient regarding discharge planning but he is currently on Ventilator. CM will continue to follow and assist as needed with discharge planning / needs. DCPIA - Discharge Planning Initial Assessment Updated by [id number]: Sha Palomino on 09/12/18 4:55 pm * Is the patient Alert and Oriented? Yes * How many steps to enter\\exit or inside your home? * PCP no pcp * Pharmacy [facility] in [place] * Preadmission Environment Home with Family * ADLs Independent * Equipment None * List name and contact numbers for known caregivers / representatives who currently or will assist patient after discharge: Rafia Parry, GRAND MOTHER, MOTHEROSBALDO, SISTER, NUPUR COONEY, * Verbal permission to speak to the caregivers and representatives has been obtained from the patient. Yes * Community resources currently utilized None * Please name any agencies selected above. hemodialysis MWF - in [place] * Additional services required to return to the preadmission environment? No * Can the patient safely return to the preadmission environment? Yes * Has this patient been hospitalized within the prior 30 days at any hospital? No Coverage Notice Reviewer: [email or web address] Palomino Notice Issued Date-Time: 09/12/2018 14:05 Notice Type: Patient Choice Letter Notice Delivered To: Patient Relationship to Patient: Sustainable Landscape Architect Name: Delivery Method: HAND - Hand Delivered Moon Days: Prior Verbal Notification: Recipient Understood Notice: Yes Recipient Signature: Yes Med Rec Note Co-signed by Attending: Coverage Notice Comment: NO PREFERENCE FOR [facility] Reviewer: [email or web address] Samantha Palomino Notice Issued Date-Time: 09/12/2018 14:05 Notice Type: IM Discharge Notice Notice Delivered To: Patient Relationship to Patient: Sustainable Landscape Architect Name: Delivery Method: HAND - Hand Delivered Moon Days: Prior Verbal Notification: Recipient Understood Notice: Yes Recipient Signature: Yes Med Rec Note Co-signed by Attending: Coverage Notice Comment: Last DP export: 09/12/18 3:56 Patient Name: SYL COONEY Page 68091 at 1705 All edits/amendments must be made on the electronic document DICTATION DATE: 09/12/181703 GRADES 1 THROUGH 6 TEACHER: RON 09/12/181703 RPT#: [id number] DC DATE: STATUS: ADM IN [facility] [address] [place] [address] END OF REPORT
--- NOTE | ~2018-08-29 | MORECARE ---
CASE MANAGEMENT DISCHARGE SUMMARY PATIENT: SYL COONEY UNIT: [id number] ADM DATE: 08/29/18 AGE: 27 : [birth year] SEX: M ROOM/BED: D.2314 AUTHOR: KAYLEE,DOC PHYSICIAN: REFERRING PHYSICIAN: REY KING MD DATE OF SERVICE: 09/08/18 Discharge Plan Patient Name: SYL COONEY Facility: [facility]:[place] : 1990 Planned Disposition: Home Anticipated Discharge Date: Discharge Date: Expected LOS: Initial Reviewer: [email or web address] Initial Review Date: 08/29/2018 Generated: 09/08/18 7:08 pm Comments DCP- Discharge Planning Updated by [email or web address]: Piedad Robin on 09/08/18 5:[address] Patient Name: SYL COONEY Admission Status: Elective Accout number: [id number] Admission Date: 08-29-2018 : 1990 Admission Diagnosis:INFECT/INFLM REACT D/T OTH CARDI/VASC DEV/IMPLNT/GRFT, Attending: REY KING Current LOS: 10 Anticipated DC Date: Planned Disposition: Home Primary Insurance: MEDICARE A & B Discharge Planning Comments: CM met with patient at bedside. Patient states he plans on staying with his grandmother here in [place] upon discharge. He states he doesn't know the address but it is just down the road. He states that prior to admission he lived with his mother in [place]. He had dialysis MWF. Patient denies any discharge needs at this time. CM will need to contact Michaela Espino to set up dialysis in [place] if patient continues to plan on living with grandmother. CM will continue to follow and assist as needed with discharge planning / needs. Tax Director: Piedad Robin DCP- Discharge Planning Updated by [email or web address]: Piedad Robin on 09/07/18 4:[address] CM received a call from patients mother Adriana Cooney this am requesting FMLA papers to filled out. CM requested them to fax paperwork. CM received paperwork and filled it out appropriately and returned papers to patients Grandmother that was in patients room. CM will continue to follow and assist as needed with discharge planning /needs. DCP- Discharge Planning Updated by [email or web address]: Piedad Marcialr on 09/07/18 3:[address] Late Entry 09/05/18 @1200 CM attempted to see patient regarding discharge planning but he is currently on Ventilator. CM will continue to follow and assist as needed with discharge planning / needs. DCPIA - Discharge Planning Initial Assessment Updated by [email or web address]: Piedad Marcialr on 09/08/18 5:55 pm * Is the patient Alert and Oriented? Yes * How many steps to enter\exit or inside your home? * PCP no pcp * Pharmacy [facility] in [place] * Preadmission Environment Home with Family * ADLs Independent * Equipment None * List name and contact numbers for known caregivers / representatives who currently or will assist patient after discharge: Rafia Parry [phone] * Verbal permission to speak to the caregivers and representatives has been obtained from the patient. Yes * Community resources currently utilized None * Please name any agencies selected above. hemodialysis MWF - in [place] * Additional services required to return to the preadmission environment? No * Can the patient safely return to the preadmission environment? Yes * Has this patient been hospitalized within the prior 30 days at any hospital? No Last DP export: 09/08/18 5:01 Patient Name: SYL COONEY Page 68633 at 1809 All edits/amendments must be made on the electronic document DICTATION DATE: 09/08/181807 ARTS THERAPIST: RON 09/08/181807 RPT#: [id number] DC DATE: STATUS: ADM IN [facility] [address] [place] [address] END OF REPORT
--- NOTE | ~2018-08-29 | MORECARE ---
CASE MANAGEMENT DISCHARGE SUMMARY PATIENT: SYL COONEY UNIT: [id number] ADM DATE: 08/29/18 AGE: 27 : [birth year] SEX: M ROOM/BED: D.2113 AUTHOR: KAYLEE,DOC PHYSICIAN: REFERRING PHYSICIAN: REY KING MD DATE OF SERVICE: 09/12/18 Discharge Plan Patient Name: SYL COONEY Facility: [facility]:[place] : 1990 Planned Disposition: Home with Home Health Anticipated Discharge Date: 09/14/18 Discharge Date: Expected LOS: 16 Initial Reviewer: [email or web address] Initial Review Date: 08/29/2018 Generated: 09/12/18 5:56 pm Comments DCP- Discharge Planning Updated by [email or web address]: Piedad Robin on 09/09/18 6:[address] CM received notice to start working on discharge planning. Dr. Jasso stated that patient would need Home Health and set up with wound vac. CM reviewed notes from Dr. Lindquist 09/02/18 stated patient wound need to stay inpatient until secondary closure. CM notified Dr. Jasso and he stated he didn't realize that was the plan. Dr. Jasso stated to get with Dr. Lindquist next week regarding plan. CM will continue to follow and assist as needed with discharge planning / needs. DCP- Discharge Planning Updated by [email or web address]: Piedad Robin on 09/08/18 5:[address] Patient Name: SYL COONEY Admission Status: Elective Accout number: [id number] Admission Date: 08-29-2018 : 1990 Admission Diagnosis:INFECT/INFLM REACT D/T OTH CARDI/VASC DEV/IMPLNT/GRFT, Attending: REY KING Current LOS: 10 Anticipated DC Date: Planned Disposition: Home Primary Insurance: MEDICARE A & B Discharge Planning Comments: CM met with patient at bedside. Patient states he plans on staying with his grandmother here in [place] upon discharge. He states he doesn't know the address but it is just down the road. He states that prior to admission he lived with his mother in [place]. He had dialysis MWF. Patient denies any discharge needs at this time. CM will need to contact Michaela Espino to set up dialysis in [place] if patient continues to plan on living with grandmother. CM will continue to follow and assist as needed with discharge planning / needs. Vitreo Retinal Surgeon: Piedad Robin DCP- Discharge Planning Updated by [email or web address]: Piedad Robin on 09/07/18 4:[address] CM received a call from patients mother Osbaldo Cooney this am requesting FMLA papers to filled out. CM requested them to fax paperwork. CM received paperwork and filled it out appropriately and returned papers to patients Grandmother that was in patients room. CM will continue to follow and assist as needed with discharge planning /needs. DCP- Discharge Planning Updated by [email or web address]: Piedad Robin on 09/07/18 3:[address] Late Entry 09/05/18 @1200 CM attempted to see patient regarding discharge planning but he is currently on Ventilator. CM will continue to follow and assist as needed with discharge planning / needs. DCPIA - Discharge Planning Initial Assessment Updated by [email or web address]: Sha Palomino on 09/12/18 4:55 pm * Is the patient Alert and Oriented? Yes * How many steps to enter\exit or inside your home? * PCP no pcp * Pharmacy [facility] in [place] * Preadmission Environment Home with Family * ADLs Independent * Equipment None * List name and contact numbers for known caregivers / representatives who currently or will assist patient after discharge: Rafia Parry, GRAND MOTHER, MOTHER, OSBALDO COONEY, SISTER, NUPUR COONEY, * Verbal permission to speak to the caregivers and representatives has been obtained from the patient. Yes * Community resources currently utilized None * Please name any agencies selected above. hemodialysis MWF - in [place] * Additional services required to return to the preadmission environment? No * Can the patient safely return to the preadmission environment? Yes * Has this patient been hospitalized within the prior 30 days at any hospital? No External [facility]iders [facility] Next Contact Date: 09/14/2018 Service Request Date: Service Type: Resolution: Reviewer: Comments: Last DP export: 09/12/18 3:43 Patient Name: SYL COONEY Page [id number] at 1656 All edits/amendments must be made on the electronic document DICTATION DATE: 09/12/181655 FUNERAL ARRANGER: RON 09/12/181655 RPT#: [id number] DC DATE: STATUS: ADM IN [facility] [address] [place] [address] END OF REPORT
--- NOTE | ~2018-08-29 | EC ---
PATIENT:SYL COONEY DATE OF SERVICE: 08/29/18 SEX: M MEDICAL RECORD: [id number] DATE OF : [birth year] LOCATION:[place] [address] AGE OF PATIENT: 27 ADMISSION DATE: 08/29/18 REFERRING PHYSICIAN: INTERPRETING PHYSICIAN: HIPOLITO MEDEL MD ECHOCARDIOGRAM REPORT ECHO CHARGES 4 ECHO COMPLETE Date: 09/02/18 CLINICAL DIAGNOSIS: CHF ECHOCARDIOGRAPHIC MEASUREMENTS (adult normal given) AC root (d.<3.7cm) 3.5 cm LV Septum d (<1.2 cm> 1.9 cm Valve Excursion 1.9 cm LV Septum (systole) 2.1 cm Left Atria (s.<4.0cm> 3.2 cm LVPW d(<1.2cm) 2.0 cm RV (d.<2.3cm) 4.5 cm LVPW (sytole) 2.2 cm LV diastole(<5.6CM) 2.8 cm MV E-F(>70mm/sec) cm LV systole 1.5 cm LVOT Diameter 1.9 cm MV exc.(>10mm) 2.3 cm Est.ejection fraction (50-75%) % DOPPLER: LVIT cm/sec A 81.0 cm/sec E 71.0 cm/sec LA cm/sec RVSP 50 mmHg LVOT 88 cm/sec AOP1/2T m/s Asc. Ao 135 cm/sec RVOT 77 cm/sec RA cm/sec PA 159 cm/sec AV Gradient Peak 73.2 mmHg AV Mean 3.44 mmHg AV Area 2.1 cm MV Gradient Peak 4.67 mmHg MV Mean 2.81 mmHg MV Area cm COMMENTS: Employment Appeals Examiner: Lucie MALLOY [employer] Worker: Lucie Irvin TAPE# PACS Pericardial Effusion N DATE OF SERVICE: 09/02/2018 PROCEDURE: Echocardiogram. FINDINGS: 1. Left ventricle chamber size is within normal limits. Left ventricular systolic function is normal. Overall ejection fraction estimated at 60%. 2. Left atrium is within normal limits at 3.2 cm. Right atrium and right ventricle chamber sizes are mildly dilated. 3. Valvular structures: Aortic valve appears to be a bicuspid valve, [facility] ECHOCARDIOGRAM REPORT [id number] SYL COONEY calcified and sclerotic, but not stenotic. The remaining valvular structures have normal structure and motion. 4. Doppler interrogation reveals mild aortic insufficiency, moderate tricuspid regurgitation, no other valvular insufficiency or stenosis. Pulmonary systolic pressure is elevated estimated at 50 mmHg. 5. No evidence of pericardial effusion or left ventricular thrombus. TRANSINT:[id number] Voice Confirmation ID: [id number] DOCUMENT ID: [id number] HIPOLITO MEDEL MD at 1031 CC: [id number] DICTATION DATE: 09/02/18 1400 CANE PUSHER: 09/02/18 1501 ADM IN [place] [address] [place] [address]
--- NOTE | ~2018-08-29 | MORECARE ---
CASE MANAGEMENT DISCHARGE SUMMARY PATIENT: SYL COONEY UNIT: [id number] ADM DATE: 08/29/18 AGE: 27 : [birth year] SEX: M ROOM/BED: D.2113 AUTHOR: KAYLEE,DOC PHYSICIAN: REFERRING PHYSICIAN: REY KING MD DATE OF SERVICE: 09/09/18 Discharge Plan Patient Name: SYL COONEY Facility: [facility]:[place] : 1990 Planned Disposition: Home Anticipated Discharge Date: Discharge Date: Expected LOS: Initial Reviewer: [email or web address] Initial Review Date: 08/29/2018 Generated: 09/09/18 8:42 pm Comments DCP- Discharge Planning Updated by [email or web address]: Piedad Robin on 09/09/18 6:[address] CM received notice to start working on discharge planning. Dr. Jasso stated that patient would need Home Health and set up with wound vac. CM reviewed notes from Dr. Lindquist 09/02/18 stated patient wound need to stay inpatient until secondary closure. CM notified Dr. Jasso and he stated he didn't realize that was the plan. Dr. Jasso stated to get with Dr. Lindquist next week regarding plan. CM will continue to follow and assist as needed with discharge planning / needs. DCP- Discharge Planning Updated by [email or web address]: Piedad Robin on 09/08/18 5:[address] Patient Name: SYL COONEY Admission Status: Elective Accout number: [id number] Admission Date: 08-29-2018 : 1990 Admission Diagnosis:INFECT/INFLM REACT D/T OTH CARDI/VASC DEV/IMPLNT/GRFT, Attending: REY KING Current LOS: 10 Anticipated DC Date: Planned Disposition: Home Primary Insurance: MEDICARE A & B Discharge Planning Comments: CM met with patient at bedside. Patient states he plans on staying with his grandmother here in [place] upon discharge. He states he doesn't know the address but it is just down the road. He states that prior to admission he lived with his mother in [place]. He had dialysis MWF. Patient denies any discharge needs at this time. CM will need to contact Michaela Espino to set up dialysis in [place] if patient continues to plan on living with grandmother. CM will continue to follow and assist as needed with discharge planning / needs. Mill House Supervisor: Piedad Robin DCP- Discharge Planning Updated by [email or web address]: Piedad Robin on 09/07/18 4:[address] CM received a call from patients mother Adriana Cooney this am requesting FMLA papers to filled out. CM requested them to fax paperwork. CM received paperwork and filled it out appropriately and returned papers to patients Grandmother that was in patients room. CM will continue to follow and assist as needed with discharge planning /needs. DCP- Discharge Planning Updated by [email or web address]: Piedad Robin on 09/07/18 3:[address] Late Entry 09/05/18 @1200 CM attempted to see patient regarding discharge planning but he is currently on Ventilator. CM will continue to follow and assist as needed with discharge planning / needs. DCPIA - Discharge Planning Initial Assessment Updated by [email or web address]: Piedad Robin on 09/08/18 5:55 pm * Is the patient Alert and Oriented? Yes * How many steps to enter\exit or inside your home? * PCP no pcp * Pharmacy [facility] in [place] * Preadmission Environment Home with Family * ADLs Independent * Equipment None * List name and contact numbers for known caregivers / representatives who currently or will assist patient after discharge: Rafia Parry [phone] * Verbal permission to speak to the caregivers and representatives has been obtained from the patient. Yes * Community resources currently utilized None * Please name any agencies selected above. hemodialysis MWF - in [place] * Additional services required to return to the preadmission environment? No * Can the patient safely return to the preadmission environment? Yes * Has this patient been hospitalized within the prior 30 days at any hospital? No Last DP export: 09/08/18 5:08 Patient Name: SYL COONEY Page [id number] at 1942 All edits/amendments must be made on the electronic document DICTATION DATE: 09/09/181940 TECHNICAL WRITER AND EDITOR: RON 09/09/181940 RPT#: [id number] DC DATE: STATUS: ADM IN [facility] [address] [place] [address] END OF REPORT
--- NOTE | ~2018-08-29 | MORECARE ---
CASE MANAGEMENT DISCHARGE SUMMARY PATIENT: SYL COONEY UNIT: [id number] ADM DATE: 08/29/18 AGE: 27 : [birth year] SEX: M ROOM/BED: D.2113 AUTHOR: KAYLEE,DOC PHYSICIAN: REFERRING PHYSICIAN: REY KING MD DATE OF SERVICE: 09/14/18 Discharge Plan Patient Name: SYL COONEY Facility: [facility]:[place] : 1990 Planned Disposition: Home with Home Health Anticipated Discharge Date: 09/14/18 Discharge Date: Expected LOS: 16 Initial Reviewer: [email or web address] Initial Review Date: 08/29/2018 Generated: 09/14/18 3:56 pm Comments DCP- Discharge Planning Updated by [email or web address]: Sha Palomino on 09/12/18 4:[address] Patient Name: SYL COONEY Encounter No: [id number] : 1990 Primary Insurance: MEDICARE A & B Anticipated DC Date: 09-14-2018 Planned Disposition: Home with Home Health External Planned Provider: [facility] OFFICE DCP follow-up note: CM RECEIVED HOME HEALTH ORDER, MET WITH PT IN ROOM, VERIFIED PT WILL BE GOING HOME WITH MOTHER, [facility] [place]. PT'S MOTHER TO PRODUCT DEVELOPMENT SPECIALIST PT. PT DENIES FURHTER NEEDS OTHER THAN HOME HEALTH, REPORTS HIS MOTHER IS TEACHABLE AND WILL BE ASSISTING WITH WOUND CARE NEEDED AT HOME. PT HAS NO CHOICE IN HOME HEALTH PROVIDER, CHOICE LETTER SIGNED. PT ASKED THAT IF HE COULD USE THE ONE HE HAD LAST TIME, THEY "DID GOOD FOR ME." IMPORTANT MESSAGE FROM MEDICARE PROVIDED AND EXPLAINED. CM REVIEWED CHART, PT HAS USED [facility] IN THE PAST. CM CALLED [facility] IN [place], , SPOKE TO DELISA AND PROVIDED REFERRAL INFORMATION. DELISA CHECKED WITH DIRECTOR, CALLED CM AND INFORMED CM THAT THEY CAN ACCEPT FOR WOUND CARE. CM FAXED REFERRAL TO [facility] AT [phone]. CM SPOKE TO SOSA [facility] WHO INFORMED CM THAT PT MAY DISCHARGE AFTER DIALYSIS ON WEDNESDAY AND ASKED THAT CM FOLLOW UP WITH DR. GAMA REGARDING ANCEF AFTER DISCHARGE. LEMUEL VERIFIED THAT THIS CAN BE DONE AFTER DIALYSIS DEPENDING ON DOSE AND DAYS NEEDED. CM PAGED AND SPOKE TO DR. GAMA WHO PROVIDED INSTRUCTIONS FOR ANCEF AFTER DIALYSIS: 2 GRAMS IV WEDNESDAY; 2GRAMS IV WEDNESDAY, 3GRAMS IF WEDNESDAY. FOR DISCHARGE, NOTIFY [facility] AT [phone], FAX DISCHARGE INFORMATION TO [facility] AT [phone]. Sha Palomino, CASE MANGEMENT DCP- Discharge Planning Updated by [id number]: Piedad Robin on 09/09/18 6:[address] CM received notice to start working on discharge planning. Dr. Jasso stated that patient would need Home Health and set up with wound vac. CM reviewed notes from Dr. Lindquist 09/02/18 stated patient wound need to stay inpatient until secondary closure. CM notified Dr. Jasso and he stated he didn't realize that was the plan. Dr. Jasso stated to get with Dr. Lindquist next week regarding plan. CM will continue to follow and assist as needed with discharge planning / needs. DCP- Discharge Planning Updated by [email or web address]: Piedad Robin on 09/08/18 5:[address] Patient Name: SYL COONEY Admission Status: Elective Accout number: [id number] Admission Date: 08-29-2018 : 1990 Admission Diagnosis:INFECT/INFLM REACT D/T OTH CARDI/VASC DEV/IMPLNT/GRFT, Attending: REY KING Current LOS: 10 Anticipated DC Date: Planned Disposition: Home Primary Insurance: MEDICARE A & B Discharge Planning Comments: CM met with patient at bedside. Patient states he plans on staying with his grandmother here in [place] upon discharge. He states he doesn't know the address but it is just down the road. He states that prior to admission he lived with his mother in [place]. He had dialysis MWF. Patient denies any discharge needs at this time. CM will need to contact Michaela Espino to set up dialysis in [place] if patient continues to plan on living with grandmother. CM will continue to follow and assist as needed with discharge planning / needs. Custom Car Builder: Piedad Robin DCP- Discharge Planning Updated by [email or web address]: Piedda Robin on 09/07/18 4:[address] CM received a call from patients mother Osbaldo Cooney this am requesting FMLA papers to filled out. CM requested them to fax paperwork. CM received paperwork and filled it out appropriately and returned papers to patients Grandmother that was in patients room. CM will continue to follow and assist as needed with discharge planning /needs. DCP- Discharge Planning Updated by [email or web address]: Piedad Robin on 09/07/18 3:[address] Late Entry 09/05/18 @1200 CM attempted to see patient regarding discharge planning but he is currently on Ventilator. CM will continue to follow and assist as needed with discharge planning / needs. DCPIA - Discharge Planning Initial Assessment Updated by [email or web address]: Sha Palomino on 09/12/18 4:55 pm * Is the patient Alert and Oriented? Yes * How many steps to enter\\exit or inside your home? * PCP no pcp * Pharmacy [facility] in [place] * Preadmission Environment Home with Family * ADLs Independent * Equipment None * List name and contact numbers for known caregivers / representatives who currently or will assist patient after discharge: Rafia Parry, GRAND MOTHER, MOTHEROSBALDO, SISTER, NUPUR COONEY, * Verbal permission to speak to the caregivers and representatives has been obtained from the patient. Yes * Community resources currently utilized None * Please name any agencies selected above. hemodialysis MWF - in [place] * Additional services required to return to the preadmission environment? No * Can the patient safely return to the preadmission environment? Yes * Has this patient been hospitalized within the prior 30 days at any hospital? No Coverage Notice Reviewer: [email or web address] Palomino Notice Issued Date-Time: 09/12/2018 14:05 Notice Type: Patient Choice Letter Notice Delivered To: Patient Relationship to Patient: Building Specialist Name: Delivery Method: HAND - Hand Delivered Moon Days: Prior Verbal Notification: Recipient Understood Notice: Yes Recipient Signature: Yes Med Rec Note Co-signed by Attending: Coverage Notice Comment: NO PREFERENCE FOR [facility] Reviewer: [email or web address] Samantha Palomino Notice Issued Date-Time: 09/12/2018 14:05 Notice Type: IM Discharge Notice Notice Delivered To: Patient Relationship to Patient: Building Specialist Name: Delivery Method: HAND - Hand Delivered Moon Days: Prior Verbal Notification: Recipient Understood Notice: Yes Recipient Signature: Yes Med Rec Note Co-signed by Attending: Coverage Notice Comment: Last DP export: 09/13/18 7:22 Patient Name: SYL COONEY Page 17664 at 1456 All edits/amendments must be made on the electronic document DICTATION DATE: 09/14/181455 CHAIN HOIST OPERATOR: RON 09/14/181455 RPT#: [id number] DC DATE: STATUS: ADM IN [facility] [address] [place] [address] END OF REPORT
[2018-08-29 17:36] VITALS: BP 145/89; BMI 21.0
[2018-08-29 18:44] LABS: BASOPHILS 0.4 % (0-2); EOSINOPHILS 2.4 % (0-7); HEMATOCRIT 29.3 % (42.0-54.0); HEMOGLOBIN 10.2 g/dL (13.5-17.5); IMMATURE GRANULOCYTES 0.2 % (0-5); LYMPHOCYTES 14.5 % (15-50); MCH 34.7 pg (26.0-34.0); MCHC 34.8 g/dL (31.0-37.0); MCV 99.7 fL (80.0-100.0); MEAN PLATELET VOLUME 9.5 fL (7.4-10.4); MONOCYTES 6.8 % (2-11); NEUTROPHILS 75.7 % (40-80); RBC 2.94 10x6/uL (4.20-6.10)
[2018-08-29 18:48] LABS: PLATELET COUNT 130 10x3/uL (130-400)
[2018-08-29 18:58] LABS: INR 1.36 (0.85-1.17); PROTIME 16.3 SECONDS (11.6-15.0)
[2018-08-29 19:00] LABS: ALBUMIN 3.3 g/dL (3.4-5.0); ANION GAP 22.3 mmol/L (8-16); BILIRUBIN - TOTAL 0.55 mg/dL (0.2-1.3); CALCIUM 7.9 mg/dL (8.5-10.1); CARBON DIOXIDE 21.3 mmol/L (21.0-32.0); CREATININE - SERUM 17.5 mg/dL (0.6-1.3); PHOSPHOROUS 5.2 mg/dL (2.5-4.9); POTASSIUM - SERUM 5.6 mmol/L (3.5-5.1); PROTEIN - SERUM 7.5 g/dL (6.4-8.2)
[2018-08-29 22:03] VITALS: BP 146/71
[2018-08-30] VITALS (15 sets, daily range): BP systolic 93–186; BP diastolic 39–124; BMI 22.4
[2018-08-30 07:19] LABS: BASOPHILS 0.4 % (0-2); EOSINOPHILS 3.3 % (0-7); HEMATOCRIT 32.2 % (42.0-54.0); HEMOGLOBIN 11.4 g/dL (13.5-17.5); IMMATURE GRANULOCYTES 0.2 % (0-5); LYMPHOCYTES 13.1 % (15-50); MCH 36.1 pg (26.0-34.0); MCHC 35.4 g/dL (31.0-37.0); MEAN PLATELET VOLUME 9.7 fL (7.4-10.4); MONOCYTES 7.9 % (2-11); NEUTROPHILS 75.1 % (40-80); PLATELET COUNT 146 10x3/uL (130-400); RBC 3.16 10x6/uL (4.20-6.10); RDW 14.1 % (11.5-14.5); WBC 5.4 10x3/uL (4.8-10.8)
[2018-08-30 07:21] LABS: MCV 101.9 fL (80.0-100.0)
[2018-08-30 07:27] LABS: INR 1.3 (0.85-1.17); PROTIME 15.7 SECONDS (11.6-15.0)
[2018-08-30 08:19] LABS: ALBUMIN 3.1 g/dL (3.4-5.0); BILIRUBIN - TOTAL 0.46 mg/dL (0.2-1.3); CALCIUM 7.3 mg/dL (8.5-10.1); CREATININE - SERUM 18.6 mg/dL (0.6-1.3); PROTEIN - SERUM 6.8 g/dL (6.4-8.2)
[2018-08-30 08:22] LABS: ANION GAP 23.5 mmol/L (8-16)
[2018-08-30 08:27] LABS: POTASSIUM - SERUM 6.5 mmol/L (3.5-5.1)
[2018-08-30 12:00] LABS: ANION GAP 22.4 mmol/L (8-16); CALCIUM 7.4 mg/dL (8.5-10.1); CARBON DIOXIDE 18.3 mmol/L (21.0-32.0); CREATININE - SERUM 18.3 mg/dL (0.6-1.3); POTASSIUM - SERUM 5.7 mmol/L (3.5-5.1)
[2018-08-30 15:39] LABS: HEMATOCRIT 35.6 % (42.0-54.0); HEMOGLOBIN 12.8 g/dL (13.5-17.5)
[2018-08-30 23:28] LABS: ALBUMIN 2.2 g/dL (3.4-5.0); ANION GAP 18.2 mmol/L (8-16); BILIRUBIN - TOTAL 0.79 mg/dL (0.2-1.3); CARBON DIOXIDE 26.7 mmol/L (21.0-32.0); CREATININE - SERUM 17.6 mg/dL (0.6-1.3); POTASSIUM - SERUM 4.9 mmol/L (3.5-5.1); PROTEIN - SERUM 5.6 g/dL (6.4-8.2)
[2018-08-31] VITALS (24 sets, daily range): BP systolic 92–161; BP diastolic 38–73
[2018-08-31 04:54] LABS: BASOPHILS 0.2 % (0-2); EOSINOPHILS 0 % (0-7); HEMATOCRIT 28.8 % (42.0-54.0); HEMOGLOBIN 10.6 g/dL (13.5-17.5); IMMATURE GRANULOCYTES 0.2 % (0-5); LYMPHOCYTES 9.6 % (15-50); MCH 35.1 pg (26.0-34.0); MCHC 36.8 g/dL (31.0-37.0); MEAN PLATELET VOLUME 9.4 fL (7.4-10.4); MONOCYTES 10.8 % (2-11); NEUTROPHILS 79.2 % (40-80); PLATELET COUNT 133 10x3/uL (130-400); RBC 3.02 10x6/uL (4.20-6.10); RDW 13.8 % (11.5-14.5); WBC 5.1 10x3/uL (4.8-10.8)
[2018-08-31 04:56] LABS: MCV 95.4 fL (80.0-100.0)
[2018-08-31 05:02] LABS: ANION GAP 20.8 mmol/L (8-16); CARBON DIOXIDE 23.8 mmol/L (21.0-32.0); CREATININE - SERUM 17.6 mg/dL (0.6-1.3); POTASSIUM - SERUM 5.6 mmol/L (3.5-5.1)
[2018-09-01] VITALS (26 sets, daily range): BP systolic 92–165; BP diastolic 46–95
[2018-09-01 04:51] LABS: ANION GAP 20.7 mmol/L (8-16); CALCIUM 7.3 mg/dL (8.5-10.1); CARBON DIOXIDE 25.3 mmol/L (21.0-32.0); CREATININE - SERUM 14.5 mg/dL (0.6-1.3); VANCOMYCIN - RANDOM 18.8 ug/mL (10.0-20.0)
[2018-09-01 05:22] LABS: BASOPHILS 0.2 % (0-2); HEMATOCRIT 26.3 % (42.0-54.0); HEMOGLOBIN 9.4 g/dL (13.5-17.5); LYMPHOCYTES 15.3 % (15-50); MCH 35.3 pg (26.0-34.0); MCHC 35.7 g/dL (31.0-37.0); MONOCYTES 13.9 % (2-11); NEUTROPHILS 69.6 % (40-80); RBC 2.66 10x6/uL (4.20-6.10)
[2018-09-01 05:23] LABS: MCV 98.9 fL (80.0-100.0); PLATELET COUNT 106 10x3/uL (130-400)
[2018-09-02] VITALS (24 sets, daily range): BP systolic 96–166; BP diastolic 36–109
[2018-09-02 09:18] LABS: BASOPHILS 0.2 % (0-2); EOSINOPHILS 2.4 % (0-7); HEMOGLOBIN 8.3 g/dL (13.5-17.5); IMMATURE GRANULOCYTES 0.2 % (0-5); LYMPHOCYTES 12.3 % (15-50); MCH 35.2 pg (26.0-34.0); MCHC 36.1 g/dL (31.0-37.0); MCV 97.5 fL (80.0-100.0); MEAN PLATELET VOLUME 9.7 fL (7.4-10.4); NEUTROPHILS 71.9 % (40-80); PLATELET COUNT 97 10x3/uL (130-400); RBC 2.36 10x6/uL (4.20-6.10); RDW 13.6 % (11.5-14.5); WBC 4.1 10x3/uL (4.8-10.8)
[2018-09-02 09:35] LABS: CARBON DIOXIDE 21.3 mmol/L (21.0-32.0); CREATININE - SERUM 16.7 mg/dL (0.6-1.3); VANCOMYCIN - RANDOM 17.1 ug/mL (10.0-20.0)
[2018-09-02 09:36] LABS: ANION GAP 25.5 mmol/L (8-16); POTASSIUM - SERUM 5.8 mmol/L (3.5-5.1)
[2018-09-03] VITALS (23 sets, daily range): BP systolic 96–193; BP diastolic 39–86
[2018-09-03 05:08] LABS: BASOPHILS 0.3 % (0-2); EOSINOPHILS 4.7 % (0-7); HEMATOCRIT 21.4 % (42.0-54.0); HEMOGLOBIN 7.8 g/dL (13.5-17.5); IMMATURE GRANULOCYTES 0.3 % (0-5); LYMPHOCYTES 15.8 % (15-50); MCH 35.6 pg (26.0-34.0); MCHC 36.4 g/dL (31.0-37.0); MCV 97.7 fL (80.0-100.0); MEAN PLATELET VOLUME 9.7 fL (7.4-10.4); MONOCYTES 8.5 % (2-11); NEUTROPHILS 70.4 % (40-80); PLATELET COUNT 99 10x3/uL (130-400); RBC 2.19 10x6/uL (4.20-6.10); RDW 13.4 % (11.5-14.5); WBC 3.9 10x3/uL (4.8-10.8)
[2018-09-03 05:27] LABS: ALBUMIN 2.4 g/dL (3.4-5.0); ANION GAP 20.5 mmol/L (8-16); BILIRUBIN - TOTAL 0.51 mg/dL (0.2-1.3); CALCIUM 7.3 mg/dL (8.5-10.1); CARBON DIOXIDE 23.8 mmol/L (21.0-32.0); CREATININE - SERUM 13.4 mg/dL (0.6-1.3); MAGNESIUM - SERUM 1.9 mg/dL (1.8-2.4); PHOSPHOROUS 8.8 mg/dL (2.5-4.9); POTASSIUM - SERUM 5.3 mmol/L (3.5-5.1); PROTEIN - SERUM 6.1 g/dL (6.4-8.2)
[2018-09-03 10:17] LABS: % SATURATION 92 % (15-55); IRON 111 ug/dl (35-150); TOTAL IRON BIND CAPACITY 120 ug/dl (260-445)
[2018-09-03 10:19] LABS: UNSAT IRON BIND CAPACITY 9 ug/dl (150-375)
[2018-09-04] VITALS (24 sets, daily range): BP systolic 91–176; BP diastolic 47–103
[2018-09-04 04:12] LABS: BASOPHILS 0 % (0-2); EOSINOPHILS 6.8 % (0-7); HEMATOCRIT 25.3 % (42.0-54.0); HEMOGLOBIN 8.9 g/dL (13.5-17.5); IMMATURE GRANULOCYTES 0.3 % (0-5); LYMPHOCYTES 15.1 % (15-50); MCH 33.8 pg (26.0-34.0); MCHC 35.2 g/dL (31.0-37.0); MCV 96.2 fL (80.0-100.0); MEAN PLATELET VOLUME 9.9 fL (7.4-10.4); MONOCYTES 10.3 % (2-11); NEUTROPHILS 67.5 % (40-80); PLATELET COUNT 104 10x3/uL (130-400); RDW 14.7 % (11.5-14.5)
[2018-09-04 04:14] LABS: RBC 2.63 10x6/uL (4.20-6.10)
[2018-09-04 04:28] LABS: ANION GAP 17.8 mmol/L (8-16); CALCIUM 7.5 mg/dL (8.5-10.1); CREATININE - SERUM 9.6 mg/dL (0.6-1.3); POTASSIUM - SERUM 4.8 mmol/L (3.5-5.1)
[2018-09-04 08:11] LABS: MAGNESIUM - SERUM 2.2 mg/dL (1.8-2.4); PHOSPHOROUS 8.5 mg/dL (2.5-4.9)
[2018-09-05] VITALS (25 sets, daily range): BP systolic 95–145; BP diastolic 35–86; Ht 167.6 cm; Wt 59.1 kg
[2018-09-05 04:23] LABS: D-DIMER-QUANTITATIVE 1.94 ug/mLFEU (0.20-0.54); PROTIME 12.8 SECONDS (11.6-15.0)
[2018-09-05 04:25] LABS: BASOPHILS 0.3 % (0-2); EOSINOPHILS 7.9 % (0-7); HEMATOCRIT 25.5 % (42.0-54.0); MCH 34.2 pg (26.0-34.0); MCHC 35.3 g/dL (31.0-37.0); MEAN PLATELET VOLUME 8.9 fL (7.4-10.4); MONOCYTES 9.8 % (2-11); PLATELET COUNT 109 10x3/uL (130-400); RBC 2.63 10x6/uL (4.20-6.10); RDW 14.7 % (11.5-14.5); WBC 3.7 10x3/uL (4.8-10.8)
[2018-09-05 04:34] LABS: ANION GAP 20.4 mmol/L (8-16); CALCIUM 7.9 mg/dL (8.5-10.1); CARBON DIOXIDE 24.3 mmol/L (21.0-32.0); CREATININE - SERUM 11.6 mg/dL (0.6-1.3); POTASSIUM - SERUM 4.7 mmol/L (3.5-5.1)
[2018-09-05 04:36] LABS: PHOSPHOROUS 9.6 mg/dL (2.5-4.9)
[2018-09-06] VITALS (25 sets, daily range): BP systolic 90–168; BP diastolic 28–63
[2018-09-06 04:10] LABS: BASOPHILS 0.2 % (0-2); EOSINOPHILS 4.2 % (0-7); HEMATOCRIT 25.9 % (42.0-54.0); IMMATURE GRANULOCYTES 0.4 % (0-5); LYMPHOCYTES 9.8 % (15-50); MCH 34.1 pg (26.0-34.0); MCHC 34.7 g/dL (31.0-37.0); MCV 98.1 fL (80.0-100.0); MEAN PLATELET VOLUME 8.6 fL (7.4-10.4); MONOCYTES 6.8 % (2-11); NEUTROPHILS 78.6 % (40-80); RBC 2.64 10x6/uL (4.20-6.10); RDW 14.4 % (11.5-14.5)
[2018-09-06 04:23] LABS: ANION GAP 16.2 mmol/L (8-16); CALCIUM 8.5 mg/dL (8.5-10.1); CARBON DIOXIDE 27.2 mmol/L (21.0-32.0); CREATININE - SERUM 9.8 mg/dL (0.6-1.3); POTASSIUM - SERUM 4.4 mmol/L (3.5-5.1)
[2018-09-06 04:24] LABS: PLATELET COUNT 135 10x3/uL (130-400); WBC 5.3 10x3/uL (4.8-10.8)
[2018-09-07] VITALS (24 sets, daily range): BP systolic 86–186; BP diastolic 25–92
[2018-09-07 04:29] LABS: BASOPHILS 0.2 % (0-2); EOSINOPHILS 3.8 % (0-7); HEMATOCRIT 24.6 % (42.0-54.0); HEMOGLOBIN 8.8 g/dL (13.5-17.5); IMMATURE GRANULOCYTES 0.2 % (0-5); LYMPHOCYTES 7.9 % (15-50); MCH 34.8 pg (26.0-34.0); MCHC 35.8 g/dL (31.0-37.0); MCV 97.2 fL (80.0-100.0); MEAN PLATELET VOLUME 8.9 fL (7.4-10.4); MONOCYTES 6.3 % (2-11); NEUTROPHILS 81.6 % (40-80); PLATELET COUNT 151 10x3/uL (130-400); RBC 2.53 10x6/uL (4.20-6.10); RDW 14.4 % (11.5-14.5); WBC 6.6 10x3/uL (4.8-10.8)
[2018-09-07 05:04] LABS: ANION GAP 20.6 mmol/L (8-16); CALCIUM 9.5 mg/dL (8.5-10.1); CARBON DIOXIDE 23.2 mmol/L (21.0-32.0); CREATININE - SERUM 11.8 mg/dL (0.6-1.3); PHOSPHOROUS 8.1 mg/dL (2.5-4.9); POTASSIUM - SERUM 3.8 mmol/L (3.5-5.1)
[2018-09-07 17:57] LABS: HEMATOCRIT 24.6 % (42.0-54.0); HEMOGLOBIN 8.7 g/dL (13.5-17.5)
[2018-09-08] VITALS (15 sets, daily range): BP systolic 83–130; BP diastolic 41–106
[2018-09-08 04:07] LABS: BASOPHILS 0.4 % (0-2); EOSINOPHILS 2.5 % (0-7); HEMATOCRIT 23.6 % (42.0-54.0); HEMOGLOBIN 8.2 g/dL (13.5-17.5); IMMATURE GRANULOCYTES 0.5 % (0-5); LYMPHOCYTES 10.1 % (15-50); MCHC 34.7 g/dL (31.0-37.0); MCV 97.9 fL (80.0-100.0); MONOCYTES 12.8 % (2-11); NEUTROPHILS 73.7 % (40-80); PLATELET COUNT 179 10x3/uL (130-400); RBC 2.41 10x6/uL (4.20-6.10); WBC 5.6 10x3/uL (4.8-10.8)
[2018-09-08 04:17] LABS: ANION GAP 19.5 mmol/L (8-16); CALCIUM 9.5 mg/dL (8.5-10.1); CARBON DIOXIDE 25.4 mmol/L (21.0-32.0); CREATININE - SERUM 10.4 mg/dL (0.6-1.3); POTASSIUM - SERUM 3.9 mmol/L (3.5-5.1)
[2018-09-09] VITALS (9 sets, daily range): BP systolic 91–137; BP diastolic 48–102
[2018-09-09 08:51] LABS: BASOPHILS 0.2 % (0-2); EOSINOPHILS 4.5 % (0-7); HEMATOCRIT 25.5 % (42.0-54.0); HEMOGLOBIN 8.9 g/dL (13.5-17.5); IMMATURE GRANULOCYTES 0.8 % (0-5); LYMPHOCYTES 11.5 % (15-50); MCH 34.6 pg (26.0-34.0); MCHC 34.9 g/dL (31.0-37.0); MCV 99.2 fL (80.0-100.0); MEAN PLATELET VOLUME 8.4 fL (7.4-10.4); MONOCYTES 7.8 % (2-11); NEUTROPHILS 75.2 % (40-80); RBC 2.57 10x6/uL (4.20-6.10); RDW 15.2 % (11.5-14.5); WBC 5.2 10x3/uL (4.8-10.8)
[2018-09-09 08:55] LABS: PLATELET COUNT 218 10x3/uL (130-400)
[2018-09-09 09:02] LABS: ANION GAP 21.9 mmol/L (8-16); CALCIUM 8.6 mg/dL (8.5-10.1); CARBON DIOXIDE 24.6 mmol/L (21.0-32.0); PHOSPHOROUS 6.3 mg/dL (2.5-4.9); POTASSIUM - SERUM 3.5 mmol/L (3.5-5.1)
[2018-09-09 09:03] LABS: CREATININE - SERUM 13.5 mg/dL (0.6-1.3)
[2018-09-10] VITALS (7 sets, daily range): BP systolic 84–184; BP diastolic 27–90
[2018-09-10 06:35] LABS: BASOPHILS 0.2 % (0-2); EOSINOPHILS 5.5 % (0-7); HEMOGLOBIN 9.8 g/dL (13.5-17.5); IMMATURE GRANULOCYTES 0.8 % (0-5); LYMPHOCYTES 14.9 % (15-50); MCH 34.5 pg (26.0-34.0); MCHC 33.8 g/dL (31.0-37.0); MEAN PLATELET VOLUME 8.2 fL (7.4-10.4); MONOCYTES 10.1 % (2-11); NEUTROPHILS 68.5 % (40-80); PLATELET COUNT 227 10x3/uL (130-400); RBC 2.84 10x6/uL (4.20-6.10); RDW 15.7 % (11.5-14.5)
[2018-09-10 06:41] LABS: MCV 102.1 fL (80.0-100.0)
[2018-09-10 07:01] LABS: ANION GAP 25.1 mmol/L (8-16); CALCIUM 9.3 mg/dL (8.5-10.1); CREATININE - SERUM 12.7 mg/dL (0.6-1.3); POTASSIUM - SERUM 3.1 mmol/L (3.5-5.1)
[2018-09-11 03:45] VITALS: BP 99/47
[2018-09-11 05:22] LABS: BASOPHILS 0.4 % (0-2); EOSINOPHILS 5.9 % (0-7); HEMATOCRIT 26.3 % (42.0-54.0); HEMOGLOBIN 8.8 g/dL (13.5-17.5); IMMATURE GRANULOCYTES 0.8 % (0-5); LYMPHOCYTES 20.7 % (15-50); MCH 34.1 pg (26.0-34.0); MCHC 33.5 g/dL (31.0-37.0); MCV 101.9 fL (80.0-100.0); MONOCYTES 6.9 % (2-11); NEUTROPHILS 65.3 % (40-80); PLATELET COUNT 210 10x3/uL (130-400); RBC 2.58 10x6/uL (4.20-6.10); RDW 15.9 % (11.5-14.5); WBC 5.1 10x3/uL (4.8-10.8)
[2018-09-11 05:39] LABS: ANION GAP 24.3 mmol/L (8-16); CALCIUM 9.5 mg/dL (8.5-10.1); CARBON DIOXIDE 23.4 mmol/L (21.0-32.0); CREATININE - SERUM 15.2 mg/dL (0.6-1.3); PHOSPHOROUS 7.6 mg/dL (2.5-4.9); POTASSIUM - SERUM 3.7 mmol/L (3.5-5.1)
[2018-09-11 10:05] VITALS: BP 138/38
[2018-09-11 13:23] VITALS: BP 123/57
[2018-09-11 19:07] VITALS: BP 180/100
[2018-09-11 20:30] VITALS: BP 153/82
[2018-09-12 02:08] VITALS: BP 155/65
[2018-09-12 04:30] VITALS: BP 149/51
[2018-09-12 04:40] LABS: BASOPHILS 0.2 % (0-2); EOSINOPHILS 4.9 % (0-7); HEMATOCRIT 25.7 % (42.0-54.0); HEMOGLOBIN 8.5 g/dL (13.5-17.5); IMMATURE GRANULOCYTES 0.6 % (0-5); MCH 34.1 pg (26.0-34.0); MCHC 33.1 g/dL (31.0-37.0); MCV 103.2 fL (80.0-100.0); MEAN PLATELET VOLUME 8.1 fL (7.4-10.4); MONOCYTES 7.4 % (2-11); NEUTROPHILS 63.9 % (40-80); PLATELET COUNT 198 10x3/uL (130-400); RBC 2.49 10x6/uL (4.20-6.10); RDW 16.3 % (11.5-14.5); WBC 4.9 10x3/uL (4.8-10.8)
[2018-09-12 05:07] LABS: ANION GAP 25.5 mmol/L (8-16); CALCIUM 8.7 mg/dL (8.5-10.1); CARBON DIOXIDE 22.1 mmol/L (21.0-32.0); CREATININE - SERUM 17.3 mg/dL (0.6-1.3); POTASSIUM - SERUM 3.6 mmol/L (3.5-5.1)
[2018-09-12 07:20] VITALS: BP 145/70
[2018-09-12 13:13] VITALS: BP 129/94
[2018-09-12 20:00] VITALS: BP 87/46
[2018-09-13 01:24] VITALS: BP 132/78
[2018-09-13 04:50] LABS: BASOPHILS 0.4 % (0-2); EOSINOPHILS 4.7 % (0-7); HEMOGLOBIN 8.2 g/dL (13.5-17.5); IMMATURE GRANULOCYTES 0.9 % (0-5); LYMPHOCYTES 17.7 % (15-50); MCHC 32.8 g/dL (31.0-37.0); MCV 103.7 fL (80.0-100.0); MONOCYTES 8.4 % (2-11); NEUTROPHILS 67.9 % (40-80); PLATELET COUNT 192 10x3/uL (130-400); RBC 2.41 10x6/uL (4.20-6.10); RDW 16.6 % (11.5-14.5); WBC 5.6 10x3/uL (4.8-10.8)
[2018-09-13 05:17] LABS: ANION GAP 21.9 mmol/L (8-16); CALCIUM 8.7 mg/dL (8.5-10.1); CARBON DIOXIDE 23.5 mmol/L (21.0-32.0); CREATININE - SERUM 15.3 mg/dL (0.6-1.3); PHOSPHOROUS 6.2 mg/dL (2.5-4.9)
[2018-09-13 05:22] LABS: POTASSIUM - SERUM 4.4 mmol/L (3.5-5.1)
[2018-09-13 06:19] VITALS: BP 134/96
[2018-09-13 09:59] VITALS: BP 113/78
[2018-09-13 13:11] VITALS: BP 143/89
[2018-09-13 16:28] VITALS: BP 108/43
[2018-09-13 22:10] VITALS: BP 95/48
[2018-09-14] VITALS: BP 134/72
[2018-09-14 05:53] VITALS: BP 198/61
[2018-09-14 06:25] LABS: ANION GAP 23.5 mmol/L (8-16); CALCIUM 9.3 mg/dL (8.5-10.1); CREATININE - SERUM 17.8 mg/dL (0.6-1.3); POTASSIUM - SERUM 4.5 mmol/L (3.5-5.1)
[2018-09-14 06:35] LABS: BASOPHILS 0.6 % (0-2); EOSINOPHILS 6.4 % (0-7); HEMATOCRIT 24.7 % (42.0-54.0); HEMOGLOBIN 8.2 g/dL (13.5-17.5); IMMATURE GRANULOCYTES 0.8 % (0-5); LYMPHOCYTES 19.4 % (15-50); MCH 34.6 pg (26.0-34.0); MCHC 33.2 g/dL (31.0-37.0); MCV 104.2 fL (80.0-100.0); MEAN PLATELET VOLUME 8.2 fL (7.4-10.4); MONOCYTES 11.8 % (2-11); PLATELET COUNT 198 10x3/uL (130-400); RBC 2.37 10x6/uL (4.20-6.10); RDW 16.9 % (11.5-14.5)
[2018-09-14 12:52] VITALS: BP 130/87
[2018-09-14] MEDS ORDERED: ANCEF 1 GM/D5W 51 G1 IV (13:46)
[2018-09-14] MEDS ORDERED: VIBRAMYCIN50 MG PO (13:46)
[2018-09-14] MEDS ORDERED: ULTRAM50 MG PO (13:48)
[2018-09-14] MEDS ORDERED: RENAGEL800 MG PO (13:49)
== END 2018-09-14 16:55 | disposition home health service (06) | DRG 252 ==
LOC: D.M2 15:22 → D.ICU 17:07 → D.M2 17:07 → D.ICU 08-30 17:18 → D.M2 09-09 16:45
PROVIDERS: Internal Medicine; Internal Medicine Nephrology; Internal Medicine Pulmonary Disease; Surgery
PROC: 0JHF3XZ Insertion of Tunneled Vascular Access Device into Left Upper Arm Subcutaneous Tissue and Fascia, Percutaneous Approach (ICD-10-PCS; 2018-08-30)
PROC: 05HY33Z Insertion of Infusion Device into Upper Vein, Percutaneous Approach (ICD-10-PCS; 2018-08-30)
PROC: 0BH17EZ Insertion of Endotracheal Airway into Trachea, Via Natural or Artificial Opening (ICD-10-PCS; 2018-08-30)
PROC: 5A1955Z Respiratory Ventilation, Greater than 96 Consecutive Hours (ICD-10-PCS; 2018-08-30)
PROC: 05CY3ZZ Extirpation of Matter from Upper Vein, Percutaneous Approach (ICD-10-PCS; principal; 2018-08-30 14:45)
PROC: 0JPV3XZ Removal of Tunneled Vascular Access Device from Upper Extremity Subcutaneous Tissue and Fascia, Percutaneous Approach (ICD-10-PCS; 2018-08-30 14:45)
DX: T82.7XXA Infection and inflammatory reaction due to other cardiac and vascular devices, implants and grafts, initial encounter (principal); A41.9 Sepsis, unspecified organism; J95.821 Acute postprocedural respiratory failure; I12.0 Hypertensive chronic kidney disease with stage 5 chronic kidney disease or end stage renal disease; E87.3 Alkalosis; D62 Acute posthemorrhagic anemia; D68.59 Other primary thrombophilia; I87.1 Compression of vein; J81.1 Chronic pulmonary edema; E87.1 Hypo-osmolality and hyponatremia; A49.01 Methicillin susceptible Staphylococcus aureus infection, unspecified site; Z99.2 Dependence on renal dialysis; E87.5 Hyperkalemia; Z95.0 Presence of cardiac pacemaker; R62.50 Unspecified lack of expected normal physiological development in childhood; J32.2 Chronic ethmoidal sinusitis; D69.6 Thrombocytopenia, unspecified; I51.7 Cardiomegaly; Y83.8 Other surgical procedures as the cause of abnormal reaction of the patient, or of later complication, without mention of misadventure at the time of the procedure

== ENCOUNTER 2018-10-10 13:38 | Inpatient (IN) | payer MEDICARE ==
[~2018-10-10] VITALS: Ht 167.6 cm; Wt 64.4 kg
[~2018-10-10 13:38] MED LIST changes: +ANCEF 1 GM/D5W 51 G1 IV; +VIBRAMYCIN50 MG PO
[2018-10-10 16:29] LABS: BASOPHILS 0.2 % (0-2); EOSINOPHILS 4.4 % (0-7); HEMATOCRIT 38.5 % (42.0-54.0); HEMOGLOBIN 12.9 g/dL (13.5-17.5); IMMATURE GRANULOCYTES 0.2 % (0-5); MCH 34.1 pg (26.0-34.0); MCHC 33.5 g/dL (31.0-37.0); MCV 101.9 fL (80.0-100.0); MEAN PLATELET VOLUME 8.9 fL (7.4-10.4); NEUTROPHILS 62.2 % (40-80); RBC 3.78 10x6/uL (4.20-6.10); RDW 14.6 % (11.5-14.5); WBC 5.3 10x3/uL (4.8-10.8)
[2018-10-10 16:31] LABS: PLATELET COUNT 128 10x3/uL (130-400)
[2018-10-10 16:39] LABS: INR 1.21 (0.85-1.17); PROTIME 14.7 SECONDS (11.6-15.0)
[2018-10-10 16:48] LABS: ALBUMIN 3.6 g/dL (3.4-5.0); ANION GAP 22.6 mmol/L (8-16); BILIRUBIN - TOTAL 0.43 mg/dL (0.2-1.3); CALCIUM 7.8 mg/dL (8.5-10.1); CARBON DIOXIDE 21.4 mmol/L (21.0-32.0); PROTEIN - SERUM 8.6 g/dL (6.4-8.2)
[2018-10-10 16:50] LABS: CREATININE - SERUM 20.5 mg/dL (0.6-1.3)
[2018-10-10 20:00] VITALS: BP 140/79
[2018-10-10] MEDS ORDERED: LOPRESSOR25 MG PO (20:09)
[2018-10-11] VITALS: BP 147/79
[2018-10-11 04:00] VITALS: BP 148/76
[2018-10-11 05:56] LABS: ALBUMIN 3.5 g/dL (3.4-5.0); ANION GAP 25.2 mmol/L (8-16); BILIRUBIN - TOTAL 0.33 mg/dL (0.2-1.3); CALCIUM 7.4 mg/dL (8.5-10.1); PHOSPHOROUS 7.7 mg/dL (2.5-4.9); POTASSIUM - SERUM 5.2 mmol/L (3.5-5.1); PROTEIN - SERUM 7.9 g/dL (6.4-8.2)
[2018-10-11 05:57] LABS: CREATININE - SERUM 21.7 mg/dL (0.6-1.3)
[2018-10-11 08:05] VITALS: BP 142/64
[2018-10-11 11:21] VITALS: BP 138/61
[2018-10-11 14:32] VITALS: BMI 21.1
[2018-10-11 16:50] VITALS: BP 141/68
[2018-10-11 21:02] VITALS: BP 125/78
[2018-10-12 01:14] VITALS: BP 134/90
[2018-10-12 05:54] VITALS: BP 141/79
[2018-10-12 06:45] LABS: ALBUMIN 3.4 g/dL (3.4-5.0); ANION GAP 24.5 mmol/L (8-16); BILIRUBIN - TOTAL 0.31 mg/dL (0.2-1.3); CALCIUM 7.2 mg/dL (8.5-10.1); CARBON DIOXIDE 21.4 mmol/L (21.0-32.0); POTASSIUM - SERUM 5.9 mmol/L (3.5-5.1)
[2018-10-12 09:16] VITALS: BP 140/64
[2018-10-12 13:07] VITALS: BP 152/91
[2018-10-12 20:00] VITALS: BP 128/88
[2018-10-13] VITALS: BP 147/79
[2018-10-13 04:56] VITALS: BP 122/88
[2018-10-13 05:33] LABS: ALBUMIN 3.2 g/dL (3.4-5.0); BILIRUBIN - TOTAL 0.32 mg/dL (0.2-1.3); CARBON DIOXIDE 24.9 mmol/L (21.0-32.0); CREATININE - SERUM 15.2 mg/dL (0.6-1.3); PHOSPHOROUS 7.5 mg/dL (2.5-4.9)
[2018-10-13 05:55] LABS: ANION GAP 19.7 mmol/L (8-16); POTASSIUM - SERUM 4.6 mmol/L (3.5-5.1)
[2018-10-13 08:46] VITALS: BP 115/77
[2018-10-13 12:43] VITALS: BP 141/82
[2018-10-13 16:48] VITALS: BP 124/77
[2018-10-13 20:37] VITALS: BP 127/75
--- NOTE | 2018-10-13 20:45 | OP ---
PATIENT NAME: WILLIAM COONEY MEDICAL RECORD: [id number] :[birth year] LOCATION:D. 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 OPERATION PERFORMED: Ultrasound-guided access of the right common femoral vein and performance of IVC gram and then insertion of a 35 cm HemoSplit tunneled dialysis catheter. SURGEON: Genevieve Yousif MD ANESTHESIA: General by LMA per ENERGY OPERATIONS VICE PRESIDENT REFERRING PHYSICIAN: Guido Bryant MD PREOPERATIVE NOTE: William Cooney is an unfortunate 27-year-old -[place]ian male who has had a lifetime of illness beginning at an early age with a surgery for cardiac congenital abnormalities. He has been in renal failure for many years and has had numerous dialysis access operations with numerous complications and thromboses and infections. He has been dialyzing most recently and successfully with a left upper extremity AV HeRO graft, but it has thrombosed again. He was admitted to the hospital here on 10/10/2018, and he is brought to the operating room today to provide access. Due to a combination of inadequate staffing and other environmental issues plus the AngioJet being broken, I am not able to really offer him anything other than insertion of a catheter this evening. While under general anesthesia, the patient was placed in supine position and the groin was imaged with a duplex ultrasound. Both femoral veins appear to be patent and compressible. The right femoral vein was chosen. It was accessed under ultrasound guidance with micropuncture technique and a catheter inserted and an inferior venacavogram performed. There was no obstruction. Subsequently, a peel-away sheath was inserted and dilators over a guidewire and lastly a 35 cm long HemoSplit catheter was placed through a short subcutaneous tunnel and over the wire through the peel-away sheath up into the mid inferior vena cava. Both lumens functioned well. They were heparin locked. The groin incision closed with interrupted inverted 3-0 Vicryl and the catheter sutured to the skin near the entry site with 2-0 Prolene. Sterile dressings were applied. The incision was sealed with glue and dressed with Maxorb Ag, Tegaderm, and Cavilon skin prep. The patient will need to be returned to the operating room to try to open his HeRO graft. It will likely be Wednesday of this week before we can get to it when hopefully the operating room will be adequately staffed and may be the AngioJet will have been repaired. TRANSINT:[id number] Voice Confirmation ID: [id number] DOCUMENT ID: [id number] OPERATIVE REPORT [id number] WILLIAM COONEY JAMES MD at 2045 CC: CARLEEN REDDY and GUIDO BRYANT III MD [id number] DICTATION DATE: 10/11/18 1856 MOBILE DEVICE ENGINEER: 10/12/18 0120 ADM IN [facility] [address] [place] [address]
[2018-10-14 00:07] VITALS: BP 127/97
[2018-10-14 04:50] VITALS: BP 137/90
[2018-10-14 06:46] LABS: ALBUMIN 3.3 g/dL (3.4-5.0); ANION GAP 20.4 mmol/L (8-16); BILIRUBIN - TOTAL 0.37 mg/dL (0.2-1.3); CALCIUM 7.7 mg/dL (8.5-10.1); CARBON DIOXIDE 23.8 mmol/L (21.0-32.0); CREATININE - SERUM 13.1 mg/dL (0.6-1.3); POTASSIUM - SERUM 4.2 mmol/L (3.5-5.1); PROTEIN - SERUM 8.4 g/dL (6.4-8.2)
[2018-10-14 09:03] VITALS: BP 167/115
[2018-10-14 12:12] VITALS: BP 140/89
[2018-10-14 16:23] VITALS: BP 152/89
[2018-10-14 21:08] VITALS: BP 124/70
[2018-10-15] VITALS (22 sets, daily range): BP systolic 87–170; BP diastolic 42–115
[2018-10-15 07:33] LABS: BASOPHILS 0.1 % (0-2); EOSINOPHILS 0.4 % (0-7); HEMATOCRIT 35.1 % (42.0-54.0); HEMOGLOBIN 12.3 g/dL (13.5-17.5); IMMATURE GRANULOCYTES 0.2 % (0-5); MEAN PLATELET VOLUME 9.6 fL (7.4-10.4); MONOCYTES 10.8 % (2-11); NEUTROPHILS 83.5 % (40-80); RBC 3.62 10x6/uL (4.20-6.10); RDW 14.4 % (11.5-14.5)
[2018-10-15 07:44] LABS: PLATELET COUNT 81 10x3/uL (130-400); WBC 10.1 10x3/uL (4.8-10.8)
[2018-10-15 07:55] LABS: ALBUMIN 3.1 g/dL (3.4-5.0); ANION GAP 22.2 mmol/L (8-16); BILIRUBIN - TOTAL 0.51 mg/dL (0.2-1.3); CALCIUM 7.1 mg/dL (8.5-10.1); CARBON DIOXIDE 23.7 mmol/L (21.0-32.0); CREATININE - SERUM 16.1 mg/dL (0.6-1.3); POTASSIUM - SERUM 3.9 mmol/L (3.5-5.1); PROTEIN - SERUM 7.4 g/dL (6.4-8.2)
[2018-10-15 08:17] LABS: PLATELET ESTIMATE DECREASED
[2018-10-16] VITALS (25 sets, daily range): BP systolic 78–143; BP diastolic 42–84
[2018-10-16 03:53] LABS: ALBUMIN 2.7 g/dL (3.4-5.0); BILIRUBIN - TOTAL 0.48 mg/dL (0.2-1.3); CALCIUM 7.6 mg/dL (8.5-10.1); CARBON DIOXIDE 20.4 mmol/L (21.0-32.0); CREATININE - SERUM 18.8 mg/dL (0.6-1.3); MAGNESIUM - SERUM 2.9 mg/dL (1.8-2.4); PROTEIN - SERUM 6.8 g/dL (6.4-8.2)
[2018-10-16 03:59] LABS: ANION GAP 26.1 mmol/L (8-16); POTASSIUM - SERUM 5.5 mmol/L (3.5-5.1)
[2018-10-16 04:17] LABS: BASOPHILS 0.2 % (0-2); HEMATOCRIT 32.7 % (42.0-54.0); HEMOGLOBIN 11.3 g/dL (13.5-17.5); IMMATURE GRANULOCYTES 0.1 % (0-5); LYMPHOCYTES 12.1 % (15-50); MCH 34.1 pg (26.0-34.0); MCHC 34.6 g/dL (31.0-37.0); MCV 98.8 fL (80.0-100.0); MEAN PLATELET VOLUME 9.9 fL (7.4-10.4); MONOCYTES 16.7 % (2-11); NEUTROPHILS 69.9 % (40-80); PLATELET COUNT 81 10x3/uL (130-400); RBC 3.31 10x6/uL (4.20-6.10); RDW 14.2 % (11.5-14.5)
[2018-10-17] VITALS (25 sets, daily range): BP systolic 81–163; BP diastolic 44–111; Ht 167.6 cm; Wt 64.4 kg
[2018-10-17 04:55] LABS: BASOPHILS 0.1 % (0-2); EOSINOPHILS 2.8 % (0-7); HEMATOCRIT 35.6 % (42.0-54.0); HEMOGLOBIN 12.1 g/dL (13.5-17.5); IMMATURE GRANULOCYTES 0.3 % (0-5); LYMPHOCYTES 11.8 % (15-50); MCH 33.6 pg (26.0-34.0); MCV 98.9 fL (80.0-100.0); MEAN PLATELET VOLUME 10.3 fL (7.4-10.4); MONOCYTES 16.3 % (2-11); NEUTROPHILS 68.7 % (40-80); RDW 13.8 % (11.5-14.5); WBC 7.9 10x3/uL (4.8-10.8)
[2018-10-17 05:13] LABS: PLATELET COUNT 106 10x3/uL (130-400)
[2018-10-17 05:25] LABS: ALBUMIN 2.7 g/dL (3.4-5.0); BILIRUBIN - TOTAL 0.37 mg/dL (0.2-1.3); CALCIUM 8.2 mg/dL (8.5-10.1); CREATININE - SERUM 14.1 mg/dL (0.6-1.3); MAGNESIUM - SERUM 2.6 mg/dL (1.8-2.4); PHENYTOIN (DILANTIN) 1.1 ug/mL (10.0-20.0); PHOSPHOROUS 8.4 mg/dL (2.5-4.9); PROTEIN - SERUM 7.7 g/dL (6.4-8.2)
[2018-10-17 05:30] LABS: ANION GAP 19.4 mmol/L (8-16); CARBON DIOXIDE 26.1 mmol/L (21.0-32.0); POTASSIUM - SERUM 4.5 mmol/L (3.5-5.1)
--- NOTE | 2018-10-17 14:29 | MORECARE ---
CASE MANAGEMENT DISCHARGE SUMMARY PATIENT: SYL COONEY UNIT: [id number] ADM DATE: 10/10/18 AGE: 27 : 88 SEX: M ROOM/BED: D.2309 AUTHOR: ROSALIA PAGE PHYSICIAN: REFERRING PHYSICIAN: CARLEEN REDDY MD DATE OF SERVICE: 10/17/18 Discharge Plan Patient Name: SYL COONEY [facility] : 1990 Planned Disposition: Anticipated Discharge Date: Discharge Date: Expected LOS: Initial Reviewer: [email or web address] Initial Review Date: 10/17/2018 Generated: 10/17/18 3:29 pm Comments DCP- Discharge Planning Updated by [email or web address]: Piedad Robin on 10/17/18 1:[address] CM ATTEMPTED TO VISIT WITH PATIENT. HE IS CURRENTLY INTUBATED AND ON VENT. NO FAMILY CURRENTLY AVAILABLE. CM WILL CONTINUE TO FOLLOW AND ASSIST. Patient Name: SYL COONEY Page [id number] at 1429 All edits/amendments must be made on the electronic document DICTATION DATE: 10/17/181427 MOLD SHAKER: RON 10/17/181427 RPT#: [id number] DC DATE: STATUS: ADM IN [facility] [address] [place] [address] END OF REPORT
[2018-10-18] VITALS (27 sets, daily range): BP systolic 48–131; BP diastolic 30–93
[2018-10-18 04:37] LABS: ALBUMIN 2.8 g/dL (3.4-5.0); ALKALINE PHOSPHATASE 114 U/L (46-116); BILIRUBIN - TOTAL 0.46 mg/dL (0.2-1.3); CALC OSMOLALITY 269 mosm/kg (275-300); CALCIUM 8.5 mg/dL (8.5-10.1); CARBON DIOXIDE 22.9 mmol/L (21.0-32.0); CHLORIDE - SERUM 87 mmol/L (98-107); CREATININE - SERUM 12.8 mg/dL (0.6-1.3); POTASSIUM - SERUM 4.2 mmol/L (3.5-5.1); PROTEIN - SERUM 8.3 g/dL (6.4-8.2); SODIUM 130 mmol/L (136-145); UREA NITROGEN 31 mg/dL (7-18); eGFR NON AFRICAN AMERICAN 5 mL/min (90-120)
[2018-10-18 04:55] LABS: ALT (SGPT) < 6 U/L (10-68); GLUCOSE 132 mg/dL (74-106)
[2018-10-19] VITALS (29 sets, daily range): BP systolic 84–135; BP diastolic 28–96
[2018-10-19 01:22] LABS: BASOPHILS 0.1 % (0-2); EOSINOPHILS 0.6 % (0-7); HEMATOCRIT 39.1 % (42.0-54.0); HEMOGLOBIN 13.5 g/dL (13.5-17.5); IMMATURE GRANULOCYTES 0.3 % (0-5); LYMPHOCYTES 7.9 % (15-50); MCH 33.8 pg (26.0-34.0); MCHC 34.5 g/dL (31.0-37.0); MCV 97.8 fL (80.0-100.0); MEAN PLATELET VOLUME 10.3 fL (7.4-10.4); MONOCYTES 15.1 % (2-11); PLATELET COUNT 150 10x3/uL (130-400); RDW 13.9 % (11.5-14.5); WBC 12.6 10x3/uL (4.8-10.8)
[2018-10-19 01:40] LABS: ALBUMIN 2.6 g/dL (3.4-5.0); ALKALINE PHOSPHATASE 108 U/L (46-116); BILIRUBIN - TOTAL 0.44 mg/dL (0.2-1.3); CALCIUM 7.6 mg/dL (8.5-10.1); CARBON DIOXIDE 21.2 mmol/L (21.0-32.0); CREATININE - SERUM 15.1 mg/dL (0.6-1.3); GLUCOSE 112 mg/dL (74-106); MAGNESIUM - SERUM 2.4 mg/dL (1.8-2.4); PROTEIN - SERUM 8.3 g/dL (6.4-8.2); SODIUM 125 mmol/L (136-145); eGFR NON AFRICAN AMERICAN 4 mL/min (90-120)
[2018-10-19 01:44] LABS: CALC OSMOLALITY 264 mosm/kg (275-300); POTASSIUM - SERUM 5.3 mmol/L (3.5-5.1); UREA NITROGEN 47 mg/dL (7-18)
[2018-10-19 01:45] LABS: ALT (SGPT) < 6 U/L (10-68); CHLORIDE - SERUM 82 mmol/L (98-107)
[2018-10-19 04:32] LABS: BASOPHILS 0.1 % (0-2); EOSINOPHILS 0.6 % (0-7); HEMOGLOBIN 11.8 g/dL (13.5-17.5); IMMATURE GRANULOCYTES 0.3 % (0-5); LYMPHOCYTES 7.7 % (15-50); MCH 33.5 pg (26.0-34.0); MCHC 34.7 g/dL (31.0-37.0); MCV 96.6 fL (80.0-100.0); MEAN PLATELET VOLUME 9.5 fL (7.4-10.4); MONOCYTES 15.1 % (2-11); NEUTROPHILS 76.2 % (40-80); RBC 3.52 10x6/uL (4.20-6.10)
[2018-10-19 04:33] LABS: PLATELET COUNT 114 10x3/uL (130-400); WBC 9.3 10x3/uL (4.8-10.8)
[2018-10-19 04:53] LABS: ALBUMIN 2.2 g/dL (3.4-5.0); ALKALINE PHOSPHATASE 94 U/L (46-116); BILIRUBIN - TOTAL 0.43 mg/dL (0.2-1.3); CALC OSMOLALITY 266 mosm/kg (275-300); CALCIUM 7.6 mg/dL (8.5-10.1); CARBON DIOXIDE 21.5 mmol/L (21.0-32.0); CREATININE - SERUM 15.1 mg/dL (0.6-1.3); GLUCOSE 113 mg/dL (74-106); POTASSIUM - SERUM 5.1 mmol/L (3.5-5.1); PROTEIN - SERUM 7.1 g/dL (6.4-8.2); SODIUM 126 mmol/L (136-145); UREA NITROGEN 49 mg/dL (7-18); eGFR NON AFRICAN AMERICAN 4 mL/min (90-120)
[2018-10-19 04:55] LABS: CHLORIDE - SERUM 84 mmol/L (98-107); PHOSPHOROUS 10.3 mg/dL (2.5-4.9)
[2018-10-19 05:05] LABS: ALT (SGPT) < 6 U/L (10-68)
[2018-10-20] VITALS (53 sets, daily range): BP systolic 40–146; BP diastolic 00–106
[2018-10-20 06:07] LABS: ALBUMIN 2.3 g/dL (3.4-5.0); ALKALINE PHOSPHATASE 87 U/L (46-116); CALC OSMOLALITY 273 mosm/kg (275-300); CALCIUM 7.9 mg/dL (8.5-10.1); CARBON DIOXIDE 20.2 mmol/L (21.0-32.0); CHLORIDE - SERUM 87 mmol/L (98-107); CREATININE - SERUM 14.4 mg/dL (0.6-1.3); GLUCOSE 111 mg/dL (74-106); POTASSIUM - SERUM 4.7 mmol/L (3.5-5.1); PROTEIN - SERUM 6.8 g/dL (6.4-8.2); SODIUM 129 mmol/L (136-145); UREA NITROGEN 51 mg/dL (7-18); eGFR NON AFRICAN AMERICAN 4 mL/min (90-120)
[2018-10-20 06:12] LABS: ALT (SGPT) < 6 U/L (10-68)
[2018-10-21] VITALS (7 sets, daily range): BP systolic 54–97; BP diastolic 29–74
--- NOTE | 2018-10-21 09:45 | MORECARE ---
CASE MANAGEMENT DISCHARGE SUMMARY PATIENT: SYL COONEY UNIT: [id number] ADM DATE: 10/10/18 AGE: 27 : 88 SEX: M ROOM/BED: D.2309 AUTHOR: ROSALIA PAGE PHYSICIAN: REFERRING PHYSICIAN: CARLEEN REDDY MD DATE OF SERVICE: 10/21/18 Discharge Plan Patient Name: SYL COONEY [facility] 1990 Planned Disposition: Anticipated Discharge Date: Discharge Date: 10/21/2018 Expected LOS: Initial Reviewer: [email or web address] Initial Review Date: 10/17/2018 Generated: 10/21/18 10:45 am Comments DCP- Discharge Planning Updated by [email or web address]: Piedad Robin on 10/17/18 1:[address] CM ATTEMPTED TO VISIT WITH PATIENT. HE IS CURRENTLY INTUBATED AND ON VENT. NO FAMILY CURRENTLY AVAILABLE. CM WILL CONTINUE TO FOLLOW AND ASSIST. Last DP export: 10/17/18 1:29 Patient Name: SYL COONEY Page [id number] at 0945 All edits/amendments must be made on the electronic document DICTATION DATE: 10/21/18944 CASING PULLER: RON 10/21/18944 RPT#: [id number] DC DATE:10/21/18 STATUS: DIS IN [facility] [address] [place] [address] END OF REPORT
== END 2018-10-21 01:42 | DRG 314 ==
LOC: D.ER 13:38 → D.ICU 16:03 → D.M2 16:03 → D.EDHOLD 16:03 → D.M2 16:40 → D.ICU 10-15 02:45
PROVIDERS: Internal Medicine Nephrology; Internal Medicine Pulmonary Disease; Surgery; ADMIT Internal Medicine Nephrology
PROC: 06HM33Z Insertion of Infusion Device into Right Femoral Vein, Percutaneous Approach (ICD-10-PCS; 2018-10-11)
PROC: B54BZZA Ultrasonography of Right Lower Extremity Veins, Guidance (ICD-10-PCS; 2018-10-11)
PROC: B5191ZZ Fluoroscopy of Inferior Vena Cava using Low Osmolar Contrast (ICD-10-PCS; 2018-10-11)
PROC: 0JHL3XZ Insertion of Tunneled Vascular Access Device into Right Upper Leg Subcutaneous Tissue and Fascia, Percutaneous Approach (ICD-10-PCS; principal; 2018-10-11 14:15)
PROC: 0BH17EZ Insertion of Endotracheal Airway into Trachea, Via Natural or Artificial Opening (ICD-10-PCS; 2018-10-15)
PROC: 5A1945Z Respiratory Ventilation, 24-96 Consecutive Hours (ICD-10-PCS; 2018-10-15)
PROC: 5A12012 Performance of Cardiac Output, Single, Manual (ICD-10-PCS; 2018-10-21)
PROC: 0BH17EZ Insertion of Endotracheal Airway into Trachea, Via Natural or Artificial Opening (ICD-10-PCS; 2018-10-21)
DX: T82.868A Thrombosis due to vascular prosthetic devices, implants and grafts, initial encounter (principal); N18.6 End stage renal disease; J96.00 Acute respiratory failure, unspecified whether with hypoxia or hypercapnia; E43 Unspecified severe protein-calorie malnutrition; I12.0 Hypertensive chronic kidney disease with stage 5 chronic kidney disease or end stage renal disease; E87.1 Hypo-osmolality and hyponatremia; E46 Unspecified protein-calorie malnutrition; Z68.1 Body mass index [BMI] 19.9 or less, adult; Q25.49 Other congenital malformations of aorta; Y83.8 Other surgical procedures as the cause of abnormal reaction of the patient, or of later complication, without mention of misadventure at the time of the procedure; Z99.2 Dependence on renal dialysis; G40.909 Epilepsy, unspecified, not intractable, without status epilepticus; E16.2 Hypoglycemia, unspecified; D69.6 Thrombocytopenia, unspecified; Z68.21 Body mass index [BMI] 21.0-21.9, adult; I46.9 Cardiac arrest, cause unspecified; Q24.8 Other specified congenital malformations of heart; T82.7XXA Infection and inflammatory reaction due to other cardiac and vascular devices, implants and grafts, initial encounter; I95.9 Hypotension, unspecified

== ENCOUNTER 2018-10-15 01:25 | Emergency (ER) | payer MEDICARE ==
[~2018-10-15] VITALS: Ht 167.6 cm; Wt 55.2 kg
[2018-10-15 01:25] VITALS: Ht 167.6 cm; Wt 55.2 kg
[~2018-10-15 01:25] MED LIST changes: +LOPRESSOR25 MG PO
[2018-10-15 02:10] LABS: BASOPHILS 0.4 % (0-2); EOSINOPHILS 2.5 % (0-7); HEMATOCRIT 41.4 % (42.0-54.0); HEMOGLOBIN 13.7 g/dL (13.5-17.5); IMMATURE GRANULOCYTES 0.9 % (0-5); LYMPHOCYTES 17.8 % (15-50); MCH 34.3 pg (26.0-34.0); MCHC 33.1 g/dL (31.0-37.0); MCV 103.8 fL (80.0-100.0); MEAN PLATELET VOLUME 10.4 fL (7.4-10.4); MONOCYTES 8.1 % (2-11); NEUTROPHILS 70.3 % (40-80); PLATELET COUNT 128 10x3/uL (130-400); RBC 3.99 10x6/uL (4.20-6.10); RDW 14.2 % (11.5-14.5); WBC 13.9 10x3/uL (4.8-10.8)
[2018-10-15 02:23] LABS: INR 2.66 (0.85-1.17); PROTIME 27.6 SECONDS (11.6-15.0)
[2018-10-15 02:29] LABS: ALBUMIN 3.4 g/dL (3.4-5.0); BILIRUBIN - TOTAL 0.34 mg/dL (0.2-1.3); CALCIUM 7.9 mg/dL (8.5-10.1); CREATININE - SERUM 16.1 mg/dL (0.6-1.3); PROTEIN - SERUM 8.7 g/dL (6.4-8.2)
[2018-10-15 02:32] LABS: ANION GAP 35.1 mmol/L (8-16); CARBON DIOXIDE 12.2 mmol/L (21.0-32.0); POTASSIUM - SERUM 5.3 mmol/L (3.5-5.1)
[2018-10-15 03:21] VITALS: BP 107/52
== END 2018-10-15 03:24 | disposition other institution (70) ==
LOC: D.ER 01:25
PROVIDERS: Emergency Medicine
DX: R41.82 Altered mental status, unspecified (principal); E87.2 Acidosis; R06.89 Other abnormalities of breathing; R06.00 Dyspnea, unspecified; I10 Essential (primary) hypertension; I12.9 Hypertensive chronic kidney disease with stage 1 through stage 4 chronic kidney disease, or unspecified chronic kidney disease; N18.9 Chronic kidney disease, unspecified; Z99.2 Dependence on renal dialysis